=== PATIENT | female | born 1975 | race Caucasian/White ===

== ENCOUNTER 2018-06-03 14:42 | Emergency (ER) | payer SELFPAY ==
[2018-06-03] MEDS ORDERED: MORPHINE 4 MG/ML SYR ONE (15:53)
[2018-06-03] MEDS ORDERED: ONDANSETRON 4 MG/2 ML VIAL ONE (15:54)
[2018-06-03 16:06] LABS: Urine Blood 2+ (NEG); Urine Glucose NEGATIVE (NEG); Urine Protein 1+ (NEG); Urine Specific Gravity >1.030 (1.005-1.030); Urine pH 5.5 (5.0-7.0)
[2018-06-03 16:11] LABS: Absolute Lymphocytes (CBC) 1.8 K/uL (0.7-4.9); Absolute Monocytes 0.6 K/uL (0.1-1.3); Basophils % 0.4 % (0-1.3); Hematocrit 40.6 % (36.0-45.0); Lymphocytes % 16.8 % (15.3-44.8); Monocytes % 5.9 % (3.3-12.3); RBC Red Blood Cell Count 4.08 M/uL (3.86-4.86)
[2018-06-03 16:37] LABS: Albumin 3.7 g/dL (3.4-5.0); Bilirubin Direct 0.2 mg/dL (0-0.2); Bilirubin Total 0.7 mg/dL (0.2-1.0); Potassium 3.8 mmol/L (3.5-5.1); Protein, Total 7.2 g/dL (6.4-8.2)
--- NOTE | 2018-06-03 17:23 | RAD REPORT ---
EXAM DESCRIPTION: CT - Abdomen Pelvis W Contrast - 06/03/2018 5:08 pm CLINICAL HISTORY: Abdominal pain, diarrhea COMPARISON: CT imaging May 2013 TECHNIQUE: Biphasic, helical CT imaging of the abdomen and pelvis was performed following 100 ml non -ionic IV contrast. No oral contrast administered. All CT scans are performed using dose optimization technique as appropriate and may include automated exposure control or mA/KV adjustment according to patient size. FINDINGS: Small subpleural nodule posterior right lower lung field unchanged from 2014. No cardiomeg michael or pericardial effusion. Liver shows a fatty infiltration pattern. No suspicious liver lesions seen. There are several small r ound low-density masses in the left lobe of the liver up to 10 mm in size. These are most likely cyst s. Aggressive process is unlikely. Prior study comparison is limited as it was a noncontrast study. Pancreas and spleen show no suspicious findings. Gallbladder and biliary tree are also without suspic ious finding. Symmetric renal function is seen with no hydronephrosis or suspicious renal mass. No pyelonephritis o r acute parenchymal process. Urinary bladder is mostly contracted limiting assessment. No suspicious uterine or ovarian finding. No adrenal abnormalities. No gastric dilatation or wall thickening. Small bowel loops are not dilated. There are several disten ded, fluid-filled small bowel loops without a transition point or mass. This is likely a nonspecific enteritis. Appendix is normal. From cecum through splenic flexure no acute colon process seen. Patien t has prominent for age diverticulosis of the descending colon and sigmoid colon. There is a trace am ount of stranding adjacent to a few diverticula at the descending sigmoid junction. Mid rectum has a slightly nodular or irregular contour likely an artifact of incomplete distention. No free air, free fluid or inflammatory stranding. No mass or bulky lymphadenopathy. A very small umbilical hernia is present. No suspicious bony findings. IMPRESSION: Suspected very mild or early diverticulitis. There is a trace amount of stranding surrou nding a few diverticula at the descending sigmoid colon junction. Rectum has a slightly thickened or nodular contour that is probably artifact of incomplete distention . Patient may benefit from colonoscopy after medical management. Patient does have advanced for age d iverticulosis. Multiple prominent fluid-filled small bowel loops most likely a nonspecific enteritis. Fatty infiltration of the liver.
--- NOTE | 2018-06-03 17:48 | ER ---
Nurse's Notes [facility] Name: Jing Gan Age: 43 yrs Sex: Female : 1975 Arrival Date: 06/03/2018 Time: 14:45 Bed 26 Private MD: None, None Diagnosis: Diverticulitis of large intestine without perforation or abscess without bleeding;Diverticulosis of intestine, part unspecified, without perforation or abscess without bleeding Presentation: 06/03 15:00 Presenting complaint: Patient states: lower abd pain and diarrhea started last night. aa5 Pt denies nausea, denies vomiting. 15:00 Transition of care: patient was not received from another setting of care. Onset of aa5 symptoms was May 2018. Risk Assessment: Do you want to hurt yourself or someone else? Patient reports no desire to harm self or others. Initial Sepsis Screen: Does the patient meet any 2 criteria? No. Patient's initial sepsis screen is negative. Does the patient have a suspected source of infection? No. Patient's initial sepsis screen is negative. Care prior to arrival: None. 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 - Social history:: Smoking status: Patient uses tobacco products, 1/4 pack a day . - Ebola Screening: : No symptoms or risks identified at this time. Screenin:03 Abuse screen: Denies threats or abuse. Denies injuries from another. Nutritional mg2 screening: No deficits noted. Tuberculosis screening: No symptoms or risk factors identified. Fall Risk Assessment: 15:15 General: Appears distressed, uncomfortable, well groomed, well developed, well tl3 nourished, Behavior is calm, cooperative, appropriate for age. Pain: Complains of pain in right lower quadrant and left upper quadrant and right upper quadrant and suprapubic area and umbilical area and epigastric area. GI: Bowel sounds present X 4 quads. Abdomen is tender to palpation X 4 quads. Vital Signs: 15:00 BP 153 / 115; Pulse 66; Resp 16 S; Temp 98.0(O); Pulse Ox 100% on R/A; Weight 58.97 kg aa5 (R); Height 5 ft. 3 in. (160.02 cm) (R); Pain 6/10; 17:45 BP 145 / 78; Pulse 69; Resp 18; Pulse Ox 100% on R/A; Pain 0/10; mg2 15:00 Body Mass Index 23.03 (58.97 kg, 160.02 cm) aa5 ED Course: 14:45 Patient arrived in ED. mr 14:45 None, None is Private Physician. mr 15:00 Arm band placed on. aa5 15:06 Nagi Rockwell PA is PHCP. jr8 15:06 Francisco Javier Machado MD is Attending Physician. jr8 15:07 Irma Gracia, DANIAL is Primary Nurse. tl3 15:10 Triage completed. aa5 15:30 Placed in gown. mg2 15:30 Inserted saline lock: 20 gauge in right antecubital area, using aseptic technique. mg2 Blood collected. IV discontinued, intact, bleeding controlled, No redness/swelling at site. Pressure dressing applied. 17:[address] via wheelchair. vm2 17:06 CT completed. Patient tolerated procedure well. Patient moved back from CT. vm2 17:09 CT Abd/Pelvis - W/Contrast In Process Unspecified. EDMS 17:47 Gael Nur MD is Referral Physician. jr8 18:02 No provider procedures requiring assistance completed. mg2 Administered Medications: 16:00 Drug: Zofran 4 mg Route: IVP; Site: right antecubital; mg2 18:02 Follow up: Response: No adverse reaction; Marked relief of symptoms mg2 16:00 Drug: morphine 4 mg Route: IVP; Site: right antecubital; mg2 18:02 Follow up: Response: No adverse reaction; Marked relief of symptoms mg2 18:01 Drug: Cipro 500 mg Route: PO; mg2 18:02 Follow up: Response: No adverse reaction; Medication administered at discharge. mg2 18:01 Drug: Flagyl 500 mg Route: PO; mg2 18:01 Follow up: Response: No adverse reaction; Medication administered at discharge. mg2 Outcome: 17:48 Discharge ordered by . jr8 18:03 Discharged to home ambulatory, with family. mg2 18:03 Condition: stable 18:03 Discharge instructions given to patient, family, Instructed on discharge instructions, follow up and referral plans. medication usage, Demonstrated understanding of instructions, follow-up care, medications, Prescriptions given X 3. 18:07 Patient left the ED. tl3 Signatures: Dispatcher [employer] ROSITA Hue ReidAmanda, RN RN aa5 Nagi Rockwell PA PA jr8 Annia Kidd 2 Irma Gracia RN RN tl3 Eusebio Stearns RN RN mg2 Corrections: (The following items were deleted from the chart) 16:22 16:06 In radiology for Abdomen Pelvis W Con+CT.RAD.BRZ. [facility]
--- NOTE | 2018-06-03 17:48 | EDPHYS ---
Physician Documentation [facility] Name: Jing Gan Age: 43 yrs Sex: Female : 1975 Arrival Date: 06/03/2018 Time: 14:45 Bed 26 Private MD: None, None ED Physician Francisco Javier Machado HPI: 06/03 16:37 This 43 yrs old Female presents to ER via Ambulatory with complaints of jr8 Abdominal Pain. 16:37 The patient presents with abdominal pain in the lower abdomen. Onset: The jr8 symptoms/episode began/occurred acutely, yesterday. The symptoms do not radiate. Associated signs and symptoms: Pertinent positives: diarrhea. The symptoms are described as crampy. Modifying factors: The symptoms are alleviated by nothing, the symptoms are aggravated by food. Severity of pain: At its worst the pain was moderate in the emergency department the pain is unchanged. It is unknown whether or not the patient has had similar symptoms in the past. The patient has not recently seen a physician. Patient stated that for the past year has had multiple episodes of diarrhea and lower abdominal cramping. Stated that after she relieves her bowels feels much better. Has not followed up with anyone due to insurance reasons. Yesterday and today has had worsening of symptoms without relief with bowel movements . 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 - Social history:: Smoking status: Patient uses tobacco products, 1/4 pack a day . - Ebola Screening: : No symptoms or risks identified at this time. ROS: 16:37 Constitutional: Negative for fever, chills, and weight loss. jr8 16:37 Abdomen/GI: Positive for abdominal pain, diarrhea, abdominal cramps, abdominal distension, Negative for nausea, vomiting, anorexia, dysphagia, hematemesis, black/tarry stool, rectal pain, rectal bleeding, bowel incontinence, flatulence. 16:37 All other systems are negative. Exam: 16:37 Eyes: Pupils equal round and reactive to light, extra-ocular motions intact. Lids and jr8 lashes normal. Conjunctiva and sclera are non-icteric and not injected. Cornea within normal limits. Periorbital areas with no swelling, redness, or edema. ENT: Nares patent. No nasal discharge, no septal abnormalities noted. Tympanic membranes are normal and external auditory canals are clear. Oropharynx with no redness, swelling, or masses, exudates, or evidence of obstruction, uvula midline. Mucous membranes moist. Neck: Trachea midline, no thyromegaly or masses palpated, and no cervical lymphadenopathy. Supple, full range of motion without nuchal rigidity, or vertebral point tenderness. No Meningismus. Cardiovascular: Regular rate and rhythm with a normal S1 and S2. No gallops, murmurs, or rubs. Normal PMI, no JVD. No pulse deficits. Respiratory: Lungs have equal breath sounds bilaterally, clear to auscultation and percussion. No rales, rhonchi or wheezes noted. No increased work of breathing, no retractions or nasal flaring. Back: No spinal tenderness. No costovertebral tenderness. Full range of motion. Skin: Warm, dry with normal turgor. Normal color with no rashes, no lesions, and no evidence of cellulitis. MS/ Extremity: Pulses equal, no cyanosis. Neurovascular intact. Full, normal range of motion. Neuro: Awake and alert, GCS 15, oriented to person, place, time, and situation. Cranial nerves II-XII grossly intact. Motor strength 5/5 in all extremities. Sensory grossly intact. Cerebellar exam normal. Normal gait. 16:37 Abdomen/GI: Inspection: distension, that is mild, Bowel sounds: active, all quadrants, Palpation: soft, in all quadrants, nontender, in the epigastric area, umbilical area, suprapubic area, right upper quadrant, left upper quadrant and right lower quadrant, moderate abdominal tenderness, in the anterior aspect of left lateral abdomen and left lower quadrant, mass, is not appreciated, rebound tenderness, is not appreciated, voluntary guarding, is not appreciated, involuntary guarding, is not appreciated, no appreciated organomegaly, Indicators: McBurney's point is not tender, Roy's sign is negative, Rovsing's sign is negative, Liver: tenderness, is not appreciated. Vital Signs: 15:00 BP 153 / 115; Pulse 66; Resp 16 S; Temp 98.0(O); Pulse Ox 100% on R/A; Weight 58.97 kg aa5 (R); Height 5 ft. 3 in. (160.02 cm) (R); Pain 6/10; 17:45 BP 145 / 78; Pulse 69; Resp 18; Pulse Ox 100% on R/A; Pain 0/10; mg2 15:00 Body Mass Index 23.03 (58.97 kg, 160.02 cm) aa5 MDM: 15:06 Patient medically screened. jr8 17:45 Data reviewed: vital signs, nurses notes, lab test result(s), radiologic studies, CT jr8 scan, and as a result, I will discharge patient. Data interpreted: Pulse oximetry: on room air is 100 %. Interpretation: normal. Counseling: I had a detailed discussion with the patient and/or guardian regarding: the historical points, exam findings, and any diagnostic results supporting the discharge/admit diagnosis, lab results, radiology results, the need for outpatient follow up, a automobile and property underwriter, to return to the emergency department if symptoms worsen or persist or if there are any questions or concerns that arise at home. Response to treatment: the patient's symptoms have markedly improved after treatment. ED course: Discussed with patient that she has diverticulosis that is advanced for her age. Mild diverticulitis present. Will put on antibiotics and pain medicine. S/S given to patient to watch for. If any present to come back immediately for further evaluation. Patient good with this plan and when infection is cleared will f/u with automobile and property underwriter . 06/03 15:34 Order name: Urine Dipstick--Ancillary (enter results); Complete Time: 16:10 06/03 15:34 Order name: Urine --Ancillary (enter results); Complete Time: 16:10 06/03 15:37 Order name: Basic Metabolic Panel; Complete Time: 16:42 06/03 15:37 Order name: CBC with Diff; Complete Time: 16:23 06/03 15:37 Order name: Creatinine for Radiology; Complete Time: 16:42 06/03 15:37 Order name: Hepatic Function; Complete Time: 16:42 06/03 15:37 Order name: Lipase; Complete Time: 16:42 06/03 15:37 Order name: IV Saline Lock; Complete Time: 17:33 06/03 16:23 Order name: CT Abd/Pelvis - W/Contrast; Complete Time: 17:38 8 06/03 15:37 Order name: Labs collected and sent; Complete Time: 17:33 06/03 15:37 Order name: Urine Test (obtain specimen); Complete Time: 15:38 06/03 15:37 Order name: Urine Dipstick-Ancillary (obtain specimen); Complete Time: 15:38 Administered Medications: 16:00 Drug: Zofran 4 mg Route: IVP; Site: right antecubital; mg2 18:02 Follow up: Response: No adverse reaction; Marked relief of symptoms mg2 16:00 Drug: morphine 4 mg Route: IVP; Site: right antecubital; mg2 18:02 Follow up: Response: No adverse reaction; Marked relief of symptoms mg2 18:01 Drug: Cipro 500 mg Route: PO; mg2 18:02 Follow up: Response: No adverse reaction; Medication administered at discharge. mg2 18:01 Drug: Flagyl 500 mg Route: PO; mg2 18:01 Follow up: Response: No adverse reaction; Medication administered at discharge. mg2 Disposition: 06/03/18 17:48 Discharged to Home. Impression: Diverticulitis of large intestine without perforation or abscess without bleeding, Diverticulosis of intestine, part unspecified, without perforation or abscess without bleeding. - Condition is Stable. - Discharge Instructions: Diverticulitis, Diverticulosis. - Prescriptions for Cipro 500 mg Oral Tablet - take 1 tablet by ORAL route every 12 hours for 10 days; 20 tablet. Flagyl 500 mg Oral Tablet - take 1 tablet by ORAL route every 6 hours for 10 days; 40 tablet. Tylenol- Codeine #3 300-30 mg Oral Tablet - take 2 tablets by ORAL route every 6 hours As needed; 20 tablet. Zofran 4 mg Oral Tablet - take 1 tablet by ORAL route every 12 hours As needed; 20 tablet. - Medication Reconciliation Form, Thank You Letter, Antibiotic Education, Prescription Opioid Use form. - Follow up: Gael Nur MD; When: 1 week; Reason: Recheck today's complaints, Continuance of care, Re-evaluation by your physician. - Problem is new. - Symptoms have improved. Signatures: Dispatcher [employer] EDMS Amanda Oneill, RN RN aa5 Nagi Rockwell PA PA jr8 Irma Gracia, RN RN tl3 Eusebio Stearns, RN RN mg2 Corrections: (The following items were deleted from the chart) 16:22 15:37 Abdomen Pelvis W Con+CT.RAD.BRZ ordered. EDMS EDMS 18:07 17:48 06/03/2018 17:48 Discharged to Home. Impression: Diverticulitis of large tl3 intestine without perforation or abscess without bleeding; Diverticulosis of intestine, part unspecified, without perforation or abscess without bleeding. Condition is Stable. Forms are Medication Reconciliation Form, Thank You Letter, Antibiotic Education, Prescription Opioid Use. Follow up: Gael Nur; When: 1 week; Reason: Recheck today's complaints, Continuance of care, Re-evaluation by your physician. Problem is new. Symptoms have improved. jr8
[2018-06-03] MEDS ORDERED: CIPROFLOXACIN HCL 500 MG TAB ONE (18:05)
[2018-06-03] MEDS ORDERED: metroNIDAZOLE 500 MG TABLET ONE (18:05)
== END 2018-06-03 18:07 | disposition home or self-care (01) ==
LOC: ER 14:42
DX: K57.32 Diverticulitis of large intestine without perforation or abscess without bleeding (principal); K57.30 Diverticulosis of large intestine without perforation or abscess without bleeding; Z72.0 Tobacco use
CPT/HCPCS: 36415; 74177; 80048; 80076; 81003; 81025; 83690; 85025; 96374; 96375; 99284; J2405; Q9967

== ENCOUNTER 2018-09-18 07:52 | Inpatient (IN) | payer SELFPAY ==
--- OUTSIDE RECORDS SUMMARY | 2018-09-18 07:55 | XMS REPORT ---
:1975 Author Organization [facility] Address [address] [place] [address] [place] [id number] Care Team Providers Name Role Phone Unavailable Unavailable Unavailable Problems This patient has no known problems. Allergies, Adverse Reactions, Alerts This patient has no known allergies or adverse reactions. Medications This patient has no known medications.
[2018-09-18 08:32] LABS: Absolute Lymphocytes (CBC) 1.4 K/uL (0.7-4.9); Absolute Neutrophil 9.7 K/uL (1.8-8.0); Basophils % 0.6 % (0-1.3); Eosinophils % 0.9 % (0-4.4); Hematocrit 40.7 % (36.0-45.0); Lymphocytes % 11.7 % (15.3-44.8); MPV 8.1 fL (7.6-11.3); Monocytes % 8.3 % (3.3-12.3); RBC Red Blood Cell Count 4.01 M/uL (3.86-4.86)
[2018-09-18] MEDS ORDERED: ONDANSETRON 4 MG/2 ML VIAL ONE ×2 (08:44→09:55)
[2018-09-18] MEDS ORDERED: MORPHINE 4 MG/ML SYR ONE ×2 (08:44→09:06)
[2018-09-18] MEDS ORDERED: NA CHLORIDE 0.9% 1,000 ML ONE ×2 (08:44→09:20)
[2018-09-18] MEDS ORDERED: CIPROFLOXACIN 400mg IV 400 MG/200 ML BAG IV ONE (08:44)
[2018-09-18] MEDS ORDERED: METRONIDAZOLE 500mg IVPB 500 MG/100 ML BAG IV ONE (08:44)
[2018-09-18 08:57] LABS: Albumin 3.2 g/dL (3.4-5.0); Bilirubin Direct 0.3 mg/dL (0-0.2); Bilirubin Total 0.8 mg/dL (0.2-1.0); Potassium 3.7 mmol/L (3.5-5.1); Protein, Total 7.1 g/dL (6.4-8.2)
[2018-09-18] MEDS ORDERED: CEFTRIAXONE/SWI 1gm 1 GM/10 ML SYR ONE (09:06)
--- NOTE | 2018-09-18 10:12 | RAD REPORT ---
EXAM DESCRIPTION: CT - Abdomen Pelvis W Contrast - 09/18/2018 9:56 am CLINICAL HISTORY: Abdominal pain, back pain, flu-like symptoms, history of diverticulitis COMPARISON: CT imaging May 2018 and May 2013 TECHNIQUE: Biphasic, helical CT imaging of the abdomen and pelvis was performed following 100 ml non -ionic IV contrast. Oral contrast was given. All CT scans are performed using dose optimization technique as appropriate and may include automated exposure control or mA/KV adjustment according to patient size. FINDINGS: A 5 millimeter pleural abutting nodule is present posterior right lung base stable back to 2013. No acute lung base finding. No pericardial thickening or effusion. No cardiomegaly. Liver attenuation indicates a mild diffuse fatty infiltration. Several small cysts are present in the left lobe. No suspicious liver lesion or capsular nodularity. Portal vein is unremarkable. No spleno megaly or focal splenic finding. Pancreas and peripancreatic tissues unremarkable. Gallbladder and bi liary tree are also without suspicious finding. Symmetric renal function is seen with no hydronephrosis or suspicious renal mass. No adrenal abnormal ities.No pyelonephritis or acute parenchymal process. Partially filled urinary bladder shows no suspi cious findings. Retroflexed uterus shows no suspicious finding. A 2.5 centimeter left ovarian cyst is present. No suspicious characteristics. This is believed to be a functional cyst. No gastric dilatation or gastric wall thickening. No acute small bowel finding. Appendix is normal. F rom the cecum through the proximal descending portion the colon is unremarkable. Patient has prominen t for age diverticulosis in the sigmoid and descending colon. In the mid descending colon there is a short segment circumferential wall thickening with edematous/ inflammatory stranding in the adjacent fat. Proximal sigmoid shows relatively prominent colon wall with trace amount of stranding in the fat . A few small lymph nodes are present. No abscess identified. No extraluminal free air. No pneumatosis. No hernia, mass or bulky lymphadeno nichol. No suspicious bony findings. IMPRESSION: Acute diverticulitis findings involve a short segment of the mid descending colon. No ab scess, extraluminal free air or other surgically emergent component. Prominent diverticulosis and mild wall thickening in the proximal sigmoid colon with adjacent small l ymph nodes. This may be additional site of mild diverticulitis. Malignancy is not excluded but on latanya gao. Additional nonacute findings detailed in the body of the report.
[2018-09-18 10:36] LABS: Urine Blood NEGATIVE (NEG); Urine Glucose NEGATIVE (NEG); Urine Protein 3+ (NEG); Urine Specific Gravity 1.025 (1.005-1.030); Urine pH 8.5 (5.0-7.0)
--- NOTE | 2018-09-18 10:41 | ER ---
Nurse's Notes [facility] Name: Jing Gan Age: 43 yrs Sex: Female : 1975 Arrival Date: 09/18/2018 Time: 07:57 Bed 14 Private MD: Diagnosis: Abdominal tenderness;Diverticulitis of large intestine without perforation or abscess without bleeding;Elevated white blood cell count Presentation: 09/18 08:00 Presenting complaint: Patient states: i have diverticulitis and Dr. Vegas has me on tw2 antibiotics but i stopped taking them like 4 days ago, then last night about 10pm the pain got worse and so i started taking them but it hasnt got better, also about 2 weeks ago i had flu like symptoms and the clinic in [place] said i had bronchitis and i still feel that way too and my lower back hurts. Transition of care: patient was not received from another setting of care. Onset of symptoms was September 18, 2018. Risk Assessment: Do you want to hurt yourself or someone else? Patient reports no desire to harm self or others. Initial Sepsis Screen: Does the patient meet any 2 criteria? No. Patient's initial sepsis screen is negative. Does the patient have a suspected source of infection? No. Patient's initial sepsis screen is negative. Care prior to arrival: None. 08:00 Method Of Arrival: Wheelchair tw2 08:00 Acuity: ELMER 3 tw2 Triage Assessment: 08:01 General: Appears uncomfortable, slender, Behavior is crying. Pain: Complains of pain in tw2 abdomen. GI: Reports lower abdominal pain, upper abdominal pain, nausea. 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 - Social history:: Smoking status: . - Ebola Screening: : Patient denies travel to an Ebola-affected area in the 21 days before illness onset. - Family history:: not pertinent. Screenin:04 Abuse screen: Denies threats or abuse. Nutritional screening: No deficits noted. tw2 Tuberculosis screening: No symptoms or risk factors identified. Fall Risk None identified. Assessment: 08:00 General: Appears uncomfortable, slender, Behavior is crying. Pain: Complains of pain in tw2 abdomen and pelvis. Neuro: Level of Consciousness is awake, alert, obeys commands, Oriented to person, place, time, situation. Cardiovascular: Heart tones S1 S2 Patient's skin is warm and dry. Respiratory: Airway is patent Respiratory effort is even, unlabored, Respiratory pattern is regular, symmetrical, Breath sounds are clear bilaterally. GI: Abdomen is flat, Bowel sounds present X 4 quads. Abd is soft X 4 quads Reports lower abdominal pain, upper abdominal pain, cramping, pt states "it feels like labor pain like my insides are going to fall out and maybe a kidney infection.". : No signs and/or symptoms were reported regarding the genitourinary system. EENT: No signs and/or symptoms were reported regarding the EENT system. Derm: No signs and/or symptoms reported regarding the dermatologic system. Musculoskeletal: Range of motion: intact in all extremities. 08:11 Reassessment: Dr. Machado at bedside at this time. tw2 09:01 Reassessment: No changes from previously documented assessment. Patient and/or family tw2 updated on plan of care and expected duration. Pain level reassessed. Patient is alert, oriented x 3, equal unlabored respirations, skin warm/dry/pink. pt states "i do drink, i am ashamed but i stopped taking my antibiotics so i could drink, i drink 4-5 shots of that cinnamon whiskey a day but then it started hurting so i stopped drinking to take the antibiotics again". 09:37 Reassessment: pt vomiting at this time, provider notified, medicated as ordered. tw2 10:05 Reassessment: Patient and/or family updated on plan of care and expected duration. Pain tw2 level reassessed. Patient is alert, oriented x 3, equal unlabored respirations, skin warm/dry/pink. pt reports nauseousness "its not bad but its still there". 11:21 Reassessment: Patient and/or family updated on plan of care and expected duration. Pain tw2 level reassessed. Patient is alert, oriented x 3, equal unlabored respirations, skin warm/dry/pink. pt c/o pain Patient states symptoms have not improved. Vital Signs: 08:02 BP 125 / 86; Pulse 103; Resp 19; Temp 98.3(TE); Pulse Ox 100% on R/A; Weight 56.25 kg tw2 (R); Height 5 ft. 3 in. (160.02 cm); Pain 10/10; 08:59 BP 132 / 95; Pulse 73; Resp 17; Pulse Ox 100% on R/A; tw2 10:05 BP 121 / 91; Pulse 81; Resp 17; Pulse Ox 99% on R/A; tw2 11:21 BP 124 / 92; Pulse 65; Resp 17; Pulse Ox 100% on R/A; Pain 9/10; tw2 12:13 BP 114 / 85; Pulse 77; Resp 17; Pulse Ox 99% on R/A; tw2 08:02 Body Mass Index 21.97 (56.25 kg, 160.02 cm) tw2 ED Course: 07:57 Patient arrived in ED. mr 08:00 Cheyenne Burks, DANIAL is Primary Nurse. tw2 08:00 Bed in low position. Call light in reach. Adult w/ patient. Pulse ox on. NIBP on. tw2 08:01 Triage completed. tw2 08:01 Arm band placed on. tw2 08:03 Francisco Javier Machado MD is Attending Physician. keyla 08:24 Inserted saline lock: 20 gauge in left antecubital area, using aseptic technique. Blood tw2 collected. 09:57 CT Abd/Pelvis - PO and IV Contrast In Process Unspecified. EDMS 10:40 Antonio Smith DO is Hospitalizing Provider. keyla 11:59 Awaiting: unsuccessful attempt to call report at this time. tw2 12:12 No provider procedures requiring assistance completed. Patient admitted, IV remains in tw2 place. Administered Medications: 08:32 Drug: NS 0.9% 1000 ml Route: IV; Rate: 1 bolus; Site: left antecubital; tw2 09:45 Follow up: Response: No adverse reaction; IV Status: Completed infusion; IV Intake: tw2 1000ml 08:34 Drug: Zofran 4 mg Route: IVP; Site: left antecubital; tw2 08:47 Follow up: Response: No adverse reaction tw2 08:36 Drug: morphine 4 mg Route: IVP; Site: left antecubital; tw2 08:46 Follow up: Response: Pain is unchanged, physician notified tw2 08:37 Drug: Flagyl 500 mg Volume: 100 ml; Route: IVPB; Rate: 200 ml/hr; Infused Over: 30 tw2 mins; Site: left antecubital; 09:08 Follow up: Response: No adverse reaction; IV Status: Completed infusion tw2 08:51 Drug: Rocephin 1 grams {Note: flagy paused and flushed with 10 ml NS prior to and after tw2 administration.} Route: IV; Rate: per protocol; Site: left antecubital; 08:56 Follow up: Response: No adverse reaction; IV Status: Completed infusion tw2 08:57 Drug: morphine 4 mg Route: IVP; Site: left antecubital; tw2 10:31 Follow up: Response: No adverse reaction; Pain is decreased tw2 08:57 CANCELLED (Duplicate Order): morphine 4 mg IVP once tw2 09:08 Drug: Cipro 400 mg Volume: 200 ml; Route: IVPB; Infused Over: 60 mins; Site: left tw2 antecubital; 10:15 Follow up: Response: No adverse reaction; IV Status: Completed infusion tw2 09:15 Drug: NS 0.9% 1000 ml Route: IV; Rate: 125 ml/hr; Site: left antecubital; tw2 11:59 Follow up: IV Status: Infusion continued upon admission tw2 12:13 Follow up: IV Status: Infusion continued upon admission tw2 09:42 Drug: Zofran 4 mg Route: IVP; Site: left antecubital; tw2 10:20 Follow up: Response: No adverse reaction; Nausea is decreased tw2 Intake: 09:45 IV: 1000ml; Total: 1000ml. tw2 Outcome: 10:41 Decision to Hospitalize by Provider. keyla 12:12 Admitted to Med/surg accompanied by tech, via wheelchair, room 424, with chart, Report tw2 called to DANIAL Christensen 12:12 Condition: stable 12:12 Instructed on the need for admit. 12:34 Patient left the ED. tw2 Signatures: Dispatcher [employer] Francisco Javier Soler MD MD [facility] Cheyenne Wells RN RN tw2
--- NOTE | 2018-09-18 10:42 | EDPHYS ---
Physician Documentation [facility] Name: Jing Gan Age: 43 yrs Sex: Female : 1975 Arrival Date: 09/18/2018 Time: 07:57 Bed 14 Private MD: ED Physician Francisco Javier Machado HPI: 09/18 08:22 This 43 yrs old Female presents to ER via Wheelchair with complaints of keyla Abdominal Pain. 08:22 The patient presents with abdominal pain in the lower abdomen, in the left upper keyla quadrant, in the left lower quadrant, abdominal distention in the upper abdomen, in the lower abdomen. Onset: The symptoms/episode began/occurred 2 day(s) ago. The symptoms do not radiate. Associated signs and symptoms: none. Severity of pain: At its worst the pain was mild in the emergency department the pain is unchanged. The patient has not experienced similar symptoms in the past. 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 - Social history:: Smoking status: . - Ebola Screening: : Patient denies travel to an Ebola-affected area in the 21 days before illness onset. - Family history:: not pertinent. ROS: 08:22 Constitutional: Negative for fever, chills, and weight loss, Eyes: Negative for injury, keyla pain, redness, and discharge, ENT: Negative for injury, pain, and discharge, Neck: Negative for injury, pain, and swelling, Cardiovascular: Negative for chest pain, palpitations, and edema, Respiratory: Negative for shortness of breath, cough, wheezing, and pleuritic chest pain, Back: Negative for injury and pain, : Negative for injury, bleeding, discharge, and swelling, MS/Extremity: Negative for injury and deformity, Skin: Negative for injury, rash, and discoloration, Neuro: Negative for headache, weakness, numbness, tingling, and seizure. 08:22 Abdomen/GI: Positive for abdominal pain, of the right lower quadrant and left lower quadrant. Exam: 08:22 Constitutional: This is a well developed, well nourished patient who is awake, alert, keyla and in no acute distress. Head/Face: Normocephalic, atraumatic. Eyes: Pupils equal round and reactive to light, extra-ocular motions intact. Lids and lashes normal. Conjunctiva and sclera are non-icteric and not injected. Cornea within normal limits. Periorbital areas with no swelling, redness, or edema. ENT: Nares patent. No nasal discharge, no septal abnormalities noted. Tympanic membranes are normal and external auditory canals are clear. Oropharynx with no redness, swelling, or masses, exudates, or evidence of obstruction, uvula midline. Mucous membranes moist. Neck: Trachea midline, no thyromegaly or masses palpated, and no cervical lymphadenopathy. Supple, full range of motion without nuchal rigidity, or vertebral point tenderness. No Meningismus. Chest/axilla: Normal chest wall appearance and motion. Nontender with no deformity. No lesions are appreciated. Cardiovascular: Regular rate and rhythm with a normal S1 and S2. No gallops, murmurs, or rubs. Normal PMI, no JVD. No pulse deficits. Respiratory: Lungs have equal breath sounds bilaterally, clear to auscultation and percussion. No rales, rhonchi or wheezes noted. No increased work of breathing, no retractions or nasal flaring. Back: No spinal tenderness. No costovertebral tenderness. Full range of motion. Skin: Warm, dry with normal turgor. Normal color with no rashes, no lesions, and no evidence of cellulitis. MS/ Extremity: Pulses equal, no cyanosis. Neurovascular intact. Full, normal range of motion. Neuro: Awake and alert, GCS 15, oriented to person, place, time, and situation. Cranial nerves II-XII grossly intact. Motor strength 5/5 in all extremities. Sensory grossly intact. Cerebellar exam normal. Normal gait. Psych: Awake, alert, with orientation to person, place and time. Behavior, mood, and affect are within normal limits. 08:22 Abdomen/GI: Inspection: distension, Bowel sounds: normal, Palpation: moderate abdominal tenderness, in the suprapubic area, posterior aspect of left lateral abdomen, anterior aspect of left lateral abdomen and left lower quadrant, Liver: no appreciated palpable abnormalities, Hernia: not appreciated. Vital Signs: 08:02 BP 125 / 86; Pulse 103; Resp 19; Temp 98.3(TE); Pulse Ox 100% on R/A; Weight 56.25 kg tw2 (R); Height 5 ft. 3 in. (160.02 cm); Pain 10/10; 08:59 BP 132 / 95; Pulse 73; Resp 17; Pulse Ox 100% on R/A; tw2 10:05 BP 121 / 91; Pulse 81; Resp 17; Pulse Ox 99% on R/A; tw2 11:21 BP 124 / 92; Pulse 65; Resp 17; Pulse Ox 100% on R/A; Pain 9/10; tw2 12:13 BP 114 / 85; Pulse 77; Resp 17; Pulse Ox 99% on R/A; tw2 08:02 Body Mass Index 21.97 (56.25 kg, 160.02 cm) tw2 MDM: 08:03 Patient medically screened. [facility] 08:24 Data reviewed: vital signs, nurses notes, lab test result(s), radiologic studies, CT keyla scan, plain films. 09/18 08:19 Order name: Basic Metabolic Panel; Complete Time: 09:33 [facility] 09/18 08:19 Order name: CBC with Diff; Complete Time: 09:33 [facility] 09/18 08:19 Order name: Creatinine for Radiology; Complete Time: 09:33 [facility] 09/18 08:19 Order name: Hepatic Function; Complete Time: 09:33 [facility] 09/18 08:19 Order name: Lipase; Complete Time: 09:33 [facility] 09/18 08:19 Order name: Urine Culture [facility] 09/18 08:19 Order name: CT Abd/Pelvis - PO and IV Contrast; Complete Time: 10:39 [facility] 09/18 08:45 Order name: Urine Dipstick--Ancillary (enter results); Complete Time: 10:39 mo 09/18 08:45 Order name: Urine --Ancillary (enter results); Complete Time: 10:39 mo 09/18 08:19 Order name: IV Saline Lock; Complete Time: 08:26 [facility] 09/18 08:19 Order name: Labs collected and sent; Complete Time: 08:26 [facility] 09/18 08:19 Order name: Urine Dipstick-Ancillary (obtain specimen); Complete Time: 08:38 [facility] 09/18 08:19 Order name: Urine Test (obtain specimen); Complete Time: 08:38 [facility] Administered Medications: 08:32 Drug: NS 0.9% 1000 ml Route: IV; Rate: 1 bolus; Site: left antecubital; tw2 09:45 Follow up: Response: No adverse reaction; IV Status: Completed infusion; IV Intake: tw2 1000ml 08:34 Drug: Zofran 4 mg Route: IVP; Site: left antecubital; tw2 08:47 Follow up: Response: No adverse reaction tw2 08:36 Drug: morphine 4 mg Route: IVP; Site: left antecubital; tw2 08:46 Follow up: Response: Pain is unchanged, physician notified tw2 08:37 Drug: Flagyl 500 mg Volume: 100 ml; Route: IVPB; Rate: 200 ml/hr; Infused Over: 30 tw2 mins; Site: left antecubital; 09:08 Follow up: Response: No adverse reaction; IV Status: Completed infusion tw2 08:51 Drug: Rocephin 1 grams {Note: flagy paused and flushed with 10 ml NS prior to and after tw2 administration.} Route: IV; Rate: per protocol; Site: left antecubital; 08:56 Follow up: Response: No adverse reaction; IV Status: Completed infusion tw2 08:57 Drug: morphine 4 mg Route: IVP; Site: left antecubital; tw2 10:31 Follow up: Response: No adverse reaction; Pain is decreased tw2 08:57 CANCELLED (Duplicate Order): morphine 4 mg IVP once tw2 09:08 Drug: Cipro 400 mg Volume: 200 ml; Route: IVPB; Infused Over: 60 mins; Site: left tw2 antecubital; 10:15 Follow up: Response: No adverse reaction; IV Status: Completed infusion tw2 09:15 Drug: NS 0.9% 1000 ml Route: IV; Rate: 125 ml/hr; Site: left antecubital; tw2 11:59 Follow up: IV Status: Infusion continued upon admission tw2 12:13 Follow up: IV Status: Infusion continued upon admission tw2 09:42 Drug: Zofran 4 mg Route: IVP; Site: left antecubital; tw2 10:20 Follow up: Response: No adverse reaction; Nausea is decreased tw2 Disposition: 09/18/18 10:41 Hospitalization ordered by Antonio Smith for Inpatient Admission. Preliminary diagnosis are Abdominal tenderness, Diverticulitis of large intestine without perforation or abscess without bleeding, Elevated white blood cell count. - Bed requested for Telemetry/MedSurg (Inpatient). - Status is Inpatient Admission. tw2 - Condition is Fair. - Problem is new. - Symptoms have improved. UTI on Admission? No Signatures: Dispatcher [employer] EDMS Francisco Javier Machado MD MD cha Solis, Maria ms Cheyenne Burks RN RN tw2 Corrections: (The following items were deleted from the chart) 08:57 08:57 morphine 4 mg IVP once ordered. tw2 tw2 11:47 10:41 Hospitalization Ordered by Antonio Smith DO for Inpatient Admission. Preliminary ms diagnosis is Abdominal tenderness; Diverticulitis of large intestine without perforation or abscess without bleeding; Elevated white blood cell count. Bed requested for Telemetry/MedSurg (Inpatient). Status is Inpatient Admission. Condition is Fair. Problem is new. Symptoms have improved. UTI on Admission? No. [facility] 12:34 11:47 09/18/2018 10:41 Hospitalization Ordered by Antonio Smith DO for Inpatient tw2 Admission. Preliminary diagnosis is Abdominal tenderness; Diverticulitis of large intestine without perforation or abscess without bleeding; Elevated white blood cell count. Bed requested for Telemetry/MedSurg (Inpatient). Status is Inpatient Admission. Condition is Fair. Problem is new. Symptoms have improved. UTI on Admission? No. ms
--- NOTE | 2018-09-18 11:18 | P.HP ---
Certification for Inpatient Patient admitted to: Inpatient With expected LOS: >2 Midnights Patient will require the following post-hospital care: None Practitioner: I am a practitioner with admitting privileges, knowledge of patient current condition, hospital course, and medical plan of care. Services: Services provided to patient in accordance with Admission requirements found in Title 42 Section 412.3 of the Code of Federal Regulations Patient History Date of Service: 09/18/18 Primary Care Provider: none; [facility]-Dr. Hyde Reason for admission: Abdominal pain, nausea, vomiting History of Present Illness: 43 yo CF presented to the ER with lower quadrant abdominal pain, nausea and vomiting. Symptoms of abdominal pain started last night to the lower quadrant, mainly to the left side. It was associated with nausea and vomiting. She was not able to take good oral intake. She mentions that she sees GI as an outpatient and was treated for diverticulitis about 2 weeks ago. She was given 2 antibiotics and anti nausea medication. Pain worsened this am. She is not any better. She came to the ER for evaluation. In the ER she was given medication for pain and nausea. CT shows acute descending and sigmoid diverticulitis. No free air or abscess noted. WBC is 12.8. Lipase negative. She will be admitted for inpatient treatment for recurrent diverticulitis. When I saw the patient in the ER, she was still having some pain to the lower quadrant. Some nausea noted. She has not had a colonoscopy but was to get one with GI once her diverticulitis had resolved. Allergies No Known Allergies Allergy (Unverified 08/14/12 16:05) Home medications list reviewed: Yes - Past Medical/Surgical History Diabetic: No -: Diverticulitis -: Tobacco abuse -: Alcohol use -: Tubal ligation Psychosocial/ Personal History: Patient lives at home. - Family History Family History: Reviewed- Non-Contributory - Social History Smoking Status: Current every day smoker Counseled patient to stop smoking for: less than 10 minutes Smoking therapy provided: Yes Patient receptive to therapy: Yes Alcohol use: Yes CD- Drugs: No Caffeine use: Yes Place of Residence: Home Review of Systems General: Weakness, Malaise, As per HPI Eyes: Unremarkable ENT: Unremarkable Respiratory: Unremarkable Cardiovascular: Unremarkable Gastrointestinal: Nausea, Vomiting, Abdominal Pain, As per HPI Genitourinary: Unremarkable Musculoskeletal: Unremarkable Integumentary: Unremarkable Neurological: Unremarkable Lymphatics: Unremarkable Physical Examination - Physical Exam General: Alert, Oriented x3, Cooperative, Mild distress HEENT: Atraumatic, Normocephalic, PERRLA, Other (dry mucous membranes) Neck: Supple, No Thyromegaly Respiratory: Clear to auscultation bilaterally, Normal air movement Cardiovascular: Normal pulses, Regular rate/rhythm Gastrointestinal: Normal bowel sounds, Soft and benign, Non-distended, No masses , No rebound, No guarding, Tenderness (pain to the left lower quadrant noted. ) Musculoskeletal: No erythema, No tenderness, No warmth Integumentary: No tenderness/swelling, No erythema, No warmth, No cyanosis Neurological: Normal speech, Normal strength at 5/5 x4 extr, Normal tone, Normal affect - Studies Laboratory Data (last 24 hrs) 09/18/18 08:24: Creatinine 0.83 09/18/18 08:24: WBC 12.3 H, Hgb 13.8, Hct 40.7, Plt Count 345 09/18/18 08:24: Sodium 137, Potassium 3.7, BUN 5 L, Creatinine 0.85, Glucose 102 , Total Bilirubin 0.8, AST 27, ALT 61, Alkaline Phosphatase 121 H, Lipase 102 Assessment and Plan - Plan Impression: Left lower abdominal pain, nausea, vomiting secondary to recurrent acute sigmoid /descending diverticulitis Tobacco/alcohol abuse Plan: Patient will be admitted for treatment for her recurrent diverticulitis. No free air or abscess noted. Will start IV Flagyl/Cipro, IV fluids and medication for pain/nausea. Will keep the patient NPO until she improves. Will consult her GI specialist for recommendations. Will provide nicotine patch if needed. Will monitor lab and replace electrolytes as needed. Will provide Lovenox for DVT prophylaxis. Blood cultures obtained. Will continue to monitor closely and reassess. Discharge Plan: Home Plan to discharge in: Greater than 2 days - Advance Directives Does patient have a Living Will: No Does patient have a Durable POA for Healthcare: No - Code Status/Comfort Care Code Status Assessed: Yes (patient is full code) Time Spent Managing Pts Care (In Minutes): 55
[2018-09-18] MEDS ORDERED: MORPHINE 2 MG/ML SYR IV PRN (11:23)
[2018-09-18] MEDS ORDERED: MORPHINE 2 MG/ML SYR ONE (11:42)
[2018-09-18] MEDS ORDERED: HYDROCODONE/APAP 7.5/325 MG TAB PO PRN (13:25)
[2018-09-18] MEDS ORDERED: TRAMADOL HCL 50 MG TAB PO PRN (13:25)
[2018-09-18] MEDS ORDERED: ACETAMINOPHEN 500 MG TAB PO PRN (13:25)
[2018-09-18] MEDS ORDERED: ACETAMINOPHEN 650MG/RECT SUPP PR PRN (13:25)
[2018-09-18 14:19] VITALS: BMI 21.0
[2018-09-18] MEDS: D5 0.9 NS 1,000 ML IV SCH ×2 (14:54→20:14)
[2018-09-18] MEDS: ONDANSETRON 4 MG/2 ML VIAL IV PRN ×2 (15:02→21:03)
[2018-09-18] MEDS: FENTANYL CITR 100 MCG/2 ML IV PRN ×3 (15:20→22:58)
[2018-09-18] MEDS: METRONIDAZOLE 500mg IVPB 500 MG/100 ML BAG IV SCH (16:48)
[2018-09-18] MEDS ORDERED: KCL 20 MEQ/100 mL IVPB 20 MEQ/100 ML BAG IV SCH (17:00)
[2018-09-18 17:55] LABS: Urine Appearance CLEAR; Urine Bilirubin NEGATIVE (NEG); Urine Blood NEGATIVE (NEG); Urine Color DK YELLOW; Urine Glucose NEGATIVE (NEG); Urine Microscopic Reflex ORDER UMIC; Urine Protein NEGATIVE (NEG); Urine Specific Gravity >=1.030 (1.005-1.030); Urine pH 5.5 (5.0-7.0)
[2018-09-18 18:08] LABS: Urine Bacteria <20 /HPF (<20); Urine Culture Reflex Order NOT NEEDED; Urine RBC NONE SEEN /HPF (NONE SEEN)
[2018-09-18] MEDS: CIPROFLOXACIN 400mg IV 400 MG/200 ML BAG IV SCH (20:04)
[2018-09-18] MEDS: FAMOTIDINE 20 MG/2 ML VIAL IV SCH (20:07)
[2018-09-19] MEDS: METRONIDAZOLE 500mg IVPB 500 MG/100 ML BAG IV SCH ×3 (01:20→16:42)
[2018-09-19] MEDS: D5 0.9 NS 1,000 ML IV SCH ×2 (01:21→13:25)
[2018-09-19] MEDS: FENTANYL CITR 100 MCG/2 ML IV PRN ×6 (02:53→19:36)
[2018-09-19] MEDS: ONDANSETRON 4 MG/2 ML VIAL IV PRN ×3 (02:59→12:53)
[2018-09-19 06:06] LABS: Absolute Lymphocytes (CBC) 0.7 K/uL (0.7-4.9); Absolute Monocytes 0.5 K/uL (0.1-1.3); Absolute Neutrophil 13.8 K/uL (1.8-8.0); Basophils % 0.2 % (0-1.3); Eosinophils % 0.1 % (0-4.4); Hematocrit 35.4 % (36.0-45.0); Lymphocytes % 4.9 % (15.3-44.8); MPV 8.9 fL (7.6-11.3); Monocytes % 3.3 % (3.3-12.3); RBC Red Blood Cell Count 3.44 M/uL (3.86-4.86)
[2018-09-19 06:15] LABS: BUN Blood Urea Nitrogen 4 mg/dL (7-18); Bicarbonate 25 mmol/L (21-32); Glucose Level 138 mg/dL (74-106); Magnesium 1.5 mg/dL (1.8-2.4); Potassium 3.5 mmol/L (3.5-5.1); Sodium Level 139 mmol/L (136-145)
[2018-09-19 07:34] LABS: Blood Morphology Comment NOT SEEN (NOT SEEN); Platelet Estimate ADEQ; Urine White Blood Cell Casts OK
[2018-09-19] MEDS: ENOXAPARIN 40 MG/0.4 ML SQ SCH (09:00)
[2018-09-19] MEDS ORDERED: POTASSIUM CL SA 10 MEQ TAB PO ONE (09:00)
[2018-09-19] MEDS ORDERED: Magnesium Sulfate 2gm IVPB 2 G/50 ML BAG IV ONE (09:00)
[2018-09-19] MEDS: NICOTINE 21 MG/PAT TD SCH (09:00)
--- NOTE | 2018-09-19 09:15 | P.PN ---
Subjective Date of Service: 09/19/18 Primary Care Provider: none; GI-Dr. Hyde Chief Complaint: Abdominal pain, nausea, vomiting Subjective: Other (Patient still with pain to the left lower quadrant. Nausea appears improved. Patient admitted that she did not finish course of her recent outpatient therapy for diverticulitis.) Physical Examination - Vital Signs Temperature: 98.2 F Blood Pressure: 103/70 Pulse: 96 Respirations: 18 Pulse Ox (%): 98 - Physical Exam General: Alert, In no apparent distress, Oriented x3, Cooperative HEENT: Atraumatic Neck: Supple Respiratory: Clear to auscultation bilaterally, Normal air movement Cardiovascular: Normal pulses, Regular rate/rhythm Gastrointestinal: Hypoactive, Soft and benign, Non-distended, No masses, No rebound, No guarding, Tenderness (Pain to the left lower quadrant remains unchanged) Neurological: Normal speech, Normal strength at 5/5 x4 extr, Normal tone, Normal affect - Studies Medications List Reviewed: Yes Assessment & Plan Discharge Plan: Home Plan to discharge in: Greater than 2 days Physician Review Additional Text: Impression: Left lower abdominal pain, nausea, vomiting secondary to recurrent acute sigmoid /descending diverticulitis Tobacco/alcohol abuse Plan: Patient admitted not finishing her recent course of outpatient diverticular antibiotic therapy. Patient now with recurrent diverticulitis. Continue with IV fluids, IV medication for pain and nausea, and IV antibiotic therapy-Flagyl/ Cipro. Will keep the patient NPO. Will adjust medication for pain for better control. Encourage ambulation. Will provide incentive spirometer. GI, who has seen patient as an outpatient, consulted. Await recommendations. Once pain significantly improved then her oral intake can be started. For now all patient remains NPO. Will provide nicotine patch as needed. Patient remains on DVT prophylaxis-Lovenox. Patient will require colonoscopy in 6-8 weeks. I will turn the service over to Dr. López tomorrow. I will go over the plan of care with her. Time Spent Managing Pts Care (In Minutes): 55
[2018-09-19] MEDS: FAMOTIDINE 20 MG/2 ML VIAL IV SCH ×2 (09:18→21:06)
[2018-09-19] MEDS: CIPROFLOXACIN 400mg IV 400 MG/200 ML BAG IV SCH ×2 (12:53→21:05)
[2018-09-19] MEDS: PROMETHAZINE 25 MG/ML VIAL IV PRN ×2 (15:00→20:58)
[2018-09-19] MEDS ORDERED: HYDROMORPHONE HCL 2 MG/ML inj IV ONE (20:36)
[2018-09-19] MEDS: ONDANSETRON 4 MG/2 ML VIAL IV SCH (20:59)
[2018-09-19] MEDS: Ringers Lactate 1,000 ML IV SCH (22:36)
[2018-09-19] MEDS: PIPER/TAZO/NS 3.375gm 3.375 GM/100 ML BAG IVPB SCH (23:23)
[2018-09-19] MEDS ORDERED: PIPER/TAZO/NS 3.375gm 6.750 GM/200 ML BAG ONE (23:24)
[2018-09-19] MEDS ORDERED: Ringers Lactate 500 ML IV SCH ×2 (23:45)
[2018-09-20] MEDS: METRONIDAZOLE 500mg IVPB 500 MG/100 ML BAG IV SCH ×3 (00:21→16:58)
[2018-09-20] MEDS: MEPERIDINE HCL 50 MG/ML AMP IV PRN ×4 (00:52→20:52)
[2018-09-20] MEDS: PROMETHAZINE 25 MG/ML VIAL IV PRN ×6 (00:53→20:53)
[2018-09-20 02:52] LABS: Urine Appearance CLOUDY; Urine Bilirubin NEGATIVE (NEG); Urine Blood NEGATIVE (NEG); Urine Color DK YELLOW; Urine Glucose NEGATIVE (NEG); Urine Protein NEGATIVE (NEG); Urine Specific Gravity 1.015 (1.005-1.030); Urine Urobilinogen 0.2 mg/dL (0.2-1.0); Urine pH 6.5 (5.0-7.0)
[2018-09-20 02:56] LABS: Urine Microscopic Reflex ORDER UMIC
[2018-09-20] MEDS: ONDANSETRON 4 MG/2 ML VIAL IV SCH ×4 (03:17→21:11)
[2018-09-20] MEDS: Ringers Lactate 1,000 ML IV SCH ×5 (03:17→18:30)
[2018-09-20] MEDS: FENTANYL CITR 100 MCG/2 ML IV PRN (03:22)
[2018-09-20 04:24] LABS: Urine Culture Reflex Order NOT NEEDED
[2018-09-20 04:25] LABS: Urine Bacteria <20 /HPF (<20); Urine Mucus 2+ /HPF (NONE SEEN); Urine RBC <5 /HPF (NONE SEEN); Urine Yeast FEW (NONE SEEN)
[2018-09-20 05:11] LABS: Absolute Lymphocytes (CBC) 0.8 K/uL (0.7-4.9); Absolute Monocytes 0.6 K/uL (0.1-1.3); Absolute Neutrophil 13.9 K/uL (1.8-8.0); Basophils % 0.1 % (0-1.3); Eosinophils % 0.2 % (0-4.4); Hematocrit 33.6 % (36.0-45.0); Lymphocytes % 5.2 % (15.3-44.8); MPV 8.6 fL (7.6-11.3); Monocytes % 3.8 % (3.3-12.3); RBC Red Blood Cell Count 3.25 M/uL (3.86-4.86)
[2018-09-20 05:26] LABS: BUN Blood Urea Nitrogen 3 mg/dL (7-18); Bicarbonate 27 mmol/L (21-32); Glucose Level 114 mg/dL (74-106); Potassium 3.3 mmol/L (3.5-5.1); Sodium Level 138 mmol/L (136-145)
[2018-09-20] MEDS: PIPER/TAZO/NS 3.375gm 3.375 GM/100 ML BAG IVPB SCH ×2 (05:50→16:59)
[2018-09-20] MEDS: NICOTINE 21 MG/PAT TD SCH (09:00)
[2018-09-20] MEDS: ENOXAPARIN 40 MG/0.4 ML SQ SCH (09:00)
[2018-09-20] MEDS: CIPROFLOXACIN 400mg IV 400 MG/200 ML BAG IV SCH ×2 (09:20→20:51)
[2018-09-20] MEDS: KCL 20 MEQ/100 mL IVPB 20 MEQ/100 ML BAG IV SCH ×2 (09:21→11:00)
[2018-09-20] MEDS: FAMOTIDINE 20 MG/2 ML VIAL IV SCH ×2 (09:22→20:52)
--- NOTE | 2018-09-20 11:51 | RAD REPORT ---
EXAM DESCRIPTION: RAD - Chest Single View - 09/19/2018 10:06 pm CLINICAL HISTORY: sepsis Chest pain. COMPARISON: <Comparisons> FINDINGS: Portable technique limits examination quality. The lungs are grossly clear. The heart is normal in size. No displaced fractures. IMPRESSION: No acute intrathoracic process suspected.
--- NOTE | 2018-09-20 13:42 | P.PN ---
Subjective Date of Service: 09/20/18 Primary Care Provider: none; GI-Dr. Hyde Chief Complaint: Abdominal pain, nausea, vomiting pt seeen and examined pt still having lower abdominal tenderness will start cl liquid diet and advance as tolerated Review of Systems 10-point ROS is otherwise unremarkable Physical Examination - Vital Signs Temperature: 98.9 F Blood Pressure: 112/80 Pulse: 81 Respirations: 20 Pulse Ox (%): 97 - Physical Exam General: Alert, In no apparent distress, Oriented x3 HEENT: Atraumatic, Normocephalic, PERRLA Neck: Supple Respiratory: Clear to auscultation bilaterally, Normal air movement Cardiovascular: No edema, Regular rate/rhythm, Normal S1 S2 Gastrointestinal: Normal bowel sounds, Soft and benign, Tenderness Musculoskeletal: No clubbing, No swelling, No erythema Integumentary: No rashes Neurological: Normal speech, Normal strength at 5/5 x4 extr - Studies Microbiology Data (last 24 hrs): 09/18/18 08:35 Clean Catch Urine [place] Count - Final <10,000 CFU/ML. 09/18/18 08:35 Clean Catch Urine - Final MIXED ANNA. Medications List Reviewed: Yes Assessment And Plan - Current Problems (Diagnosis) (1) Acute diverticulitis Current Visit: Yes Status: Acute - Plan acute diverticulitis active smoker plan: IV abx cipro and flagyl antiemetic prn advance diet as tolerated Gi consult IVF hydration nictine patch dvt ppx Discharge Plan: Home Plan to discharge in: 24 Hours
--- NOTE | 2018-09-20 14:19 | P.PN ---
Subjective Date of Service: 09/20/18 Primary Care Provider: none; GI-Dr. Hyde Chief Complaint: Abdominal pain, nausea, vomiting Subjective: Improving (Less abdominal pain, N/V. WBC plateauing at 15.1 to 15.4 (up from 12.3 from the day before). Polys decreasing from 92 to 91%.) Physical Examination - Vital Signs Temperature: 98.9 F Blood Pressure: 112/80 Pulse: 81 Respirations: 20 Pulse Ox (%): 97 - Studies Microbiology Data (last 24 hrs): 09/18/18 08:35 Clean Catch Urine [place] Count - Final <10,000 CFU/ML. 09/18/18 08:35 Clean Catch Urine - Final MIXED ANNA. Medications List Reviewed: Yes Assessment And Plan - Current Problems (Diagnosis) (1) LLQ abdominal pain Current Visit: Yes Status: Acute Comment: Improved. (2) RLQ abdominal pain Current Visit: Yes Status: Acute Comment: Improved. (3) Abnormal CT of the abdomen Current Visit: Yes Status: Acute (4) Sepsis Current Visit: Yes Status: Acute Comment: Plateauing, see above. (5) Acute diverticulitis Current Visit: Yes Status: Acute Comment: Slow to improve. - Plan REC: 1) restart Zosyn 2) NPO except limited ice chips 3) continue prn pain medications / anti-emetics Physician Review Additional Text: Impression: Left lower abdominal pain, nausea, vomiting secondary to recurrent acute sigmoid /descending diverticulitis Tobacco/alcohol abuse Plan: Patient admitted not finishing her recent course of outpatient diverticular antibiotic therapy. Patient now with recurrent diverticulitis. Continue with IV fluids, IV medication for pain and nausea, and IV antibiotic therapy-Flagyl/ Cipro. Will keep the patient NPO. Will adjust medication for pain for better control. Encourage ambulation. Will provide incentive spirometer. GI, who has seen patient as an outpatient, consulted. Await recommendations. Once pain significantly improved then her oral intake can be started. For now all patient remains NPO. Will provide nicotine patch as needed. Patient remains on DVT prophylaxis-Lovenox. Patient will require colonoscopy in 6-8 weeks. I will turn the service over to Dr. López tomorrow. I will go over the plan of care with her.
[2018-09-20] MEDS ORDERED: KCL 20 MEQ/100 mL IVPB 20 MEQ/100 ML BAG IV SCH (16:00)
[2018-09-20 16:32] LABS: Absolute Lymphocytes (CBC) 0.7 K/uL (0.7-4.9); Absolute Monocytes 0.4 K/uL (0.1-1.3); Absolute Neutrophil 11.6 K/uL (1.8-8.0); Basophils % 0.4 % (0-1.3); Eosinophils % 0.6 % (0-4.4); Hematocrit 33.1 % (36.0-45.0); Lymphocytes % 5.5 % (15.3-44.8); MPV 8.5 fL (7.6-11.3); Monocytes % 3.3 % (3.3-12.3); RBC Red Blood Cell Count 3.24 M/uL (3.86-4.86)
[2018-09-20 16:43] LABS: BUN Blood Urea Nitrogen 3 mg/dL (7-18); Bicarbonate 26 mmol/L (21-32); Glucose Level 96 mg/dL (74-106); Potassium 3.4 mmol/L (3.5-5.1); Sodium Level 141 mmol/L (136-145)
[2018-09-21] MEDS: METRONIDAZOLE 500mg IVPB 500 MG/100 ML BAG IV SCH ×3 (00:22→17:29)
[2018-09-21] MEDS: PIPER/TAZO/NS 3.375gm 3.375 GM/100 ML BAG IVPB SCH ×3 (00:22→17:29)
[2018-09-21] MEDS: Ringers Lactate 1,000 ML IV SCH ×5 (00:40→20:40)
[2018-09-21] MEDS: PROMETHAZINE 25 MG/ML VIAL IV PRN ×4 (01:19→14:03)
[2018-09-21] MEDS: ONDANSETRON 4 MG/2 ML VIAL IV SCH ×5 (03:44→21:00)
[2018-09-21] MEDS: MEPERIDINE HCL 50 MG/ML AMP IV PRN ×3 (04:00→14:24)
[2018-09-21 06:14] LABS: Absolute Lymphocytes (CBC) 0.8 K/uL (0.7-4.9); Absolute Monocytes 0.5 K/uL (0.1-1.3); Basophils % 0.2 % (0-1.3); Eosinophils % 1.6 % (0-4.4); Hematocrit 31.2 % (36.0-45.0); Lymphocytes % 6.4 % (15.3-44.8); MPV 8.8 fL (7.6-11.3); Monocytes % 4.4 % (3.3-12.3); RBC Red Blood Cell Count 3.07 M/uL (3.86-4.86)
[2018-09-21 06:20] LABS: BUN Blood Urea Nitrogen 3 mg/dL (7-18); Bicarbonate 24 mmol/L (21-32); Glucose Level 80 mg/dL (74-106); Magnesium 1.7 mg/dL (1.8-2.4); Potassium 3.7 mmol/L (3.5-5.1); Sodium Level 138 mmol/L (136-145)
[2018-09-21] MEDS: ENOXAPARIN 40 MG/0.4 ML SQ SCH (09:00)
[2018-09-21] MEDS ORDERED: MAGNESIUM SULFATE 1 gm IVPB 1 GM/100 ML BAG IV ONE (09:00)
[2018-09-21] MEDS: NICOTINE 21 MG/PAT TD SCH (09:00)
[2018-09-21] MEDS ORDERED: POTASSIUM CL SA 10 MEQ TAB PO ONE (09:00)
[2018-09-21] MEDS: CIPROFLOXACIN 400mg IV 400 MG/200 ML BAG IV SCH ×2 (09:16→21:17)
[2018-09-21] MEDS: FAMOTIDINE 20 MG/2 ML VIAL IV SCH ×2 (09:18→21:22)
--- NOTE | 2018-09-21 11:45 | P.PN ---
Subjective Date of Service: 09/21/18 Primary Care Provider: none; GI-Dr. Hyde Chief Complaint: Abdominal pain, nausea, vomiting pt seeen and examined pt still having lower abdominal tenderness pt wants to eat and was asking to advance her diet and attributes her N/V to pain medications will keep NPO as per GI recommendations Review of Systems 10-point ROS is otherwise unremarkable Physical Examination - Vital Signs Temperature: 98.2 F Blood Pressure: 119/79 Pulse: 82 Respirations: 16 Pulse Ox (%): 97 - Physical Exam General: Alert, In no apparent distress, Oriented x3 HEENT: Atraumatic, Normocephalic, PERRLA Respiratory: Clear to auscultation bilaterally, Normal air movement Cardiovascular: No edema, Regular rate/rhythm, Normal S1 S2 Gastrointestinal: Normal bowel sounds, Soft and benign, Non-distended Musculoskeletal: No clubbing Integumentary: No rashes Neurological: Normal speech - Studies Microbiology Data (last 24 hrs): 09/18/18 08:35 Clean Catch Urine [place] Count - Final <10,000 CFU/ML. 09/18/18 08:35 Clean Catch Urine - Final MIXED ANNA. Medications List Reviewed: Yes Assessment And Plan - Current Problems (Diagnosis) (1) Acute diverticulitis Current Visit: Yes Status: Acute - Plan acute diverticulitis active smoker plan: IV abx cipro and flagyl antiemetic prn advance diet as tolerated Gi consult IVF hydration nictine patch dvt ppx Physician Review Additional Text: Impression: Left lower abdominal pain, nausea, vomiting secondary to recurrent acute sigmoid /descending diverticulitis Tobacco/alcohol abuse Plan: Patient admitted not finishing her recent course of outpatient diverticular antibiotic therapy. Patient now with recurrent diverticulitis. Continue with IV fluids, IV medication for pain and nausea, and IV antibiotic therapy-Flagyl/ Cipro. Will keep the patient NPO. Will adjust medication for pain for better control. Encourage ambulation. Will provide incentive spirometer. GI, who has seen patient as an outpatient, consulted. Await recommendations. Once pain significantly improved then her oral intake can be started. For now all patient remains NPO. Will provide nicotine patch as needed. Patient remains on DVT prophylaxis-Lovenox. Patient will require colonoscopy in 6-8 weeks. I will turn the service over to Dr. López tomorrow. I will go over the plan of care with her.
[2018-09-21 13:22] LABS: Absolute Lymphocytes (CBC) 0.9 K/uL (0.7-4.9); Absolute Monocytes 0.5 K/uL (0.1-1.3); Absolute Neutrophil 9.6 K/uL (1.8-8.0); Basophils % 0.6 % (0-1.3); Eosinophils % 1.5 % (0-4.4); Hematocrit 32.1 % (36.0-45.0); Lymphocytes % 7.7 % (15.3-44.8); MPV 8.4 fL (7.6-11.3); Monocytes % 4.6 % (3.3-12.3); RBC Red Blood Cell Count 3.16 M/uL (3.86-4.86)
[2018-09-21 13:36] LABS: BUN Blood Urea Nitrogen 3 mg/dL (7-18); Bicarbonate 26 mmol/L (21-32); Glucose Level 113 mg/dL (74-106); Potassium 3.3 mmol/L (3.5-5.1); Sodium Level 138 mmol/L (136-145)
[2018-09-21] MEDS ORDERED: KCL 20 MEQ/100 mL IVPB 20 MEQ/100 ML BAG IV SCH ×2 (15:00→21:00)
[2018-09-21 16:22] LABS: BUN Blood Urea Nitrogen 2 mg/dL (7-18); Bicarbonate 23 mmol/L (21-32); Glucose Level 87 mg/dL (74-106); Potassium 3.4 mmol/L (3.5-5.1); Sodium Level 139 mmol/L (136-145)
[2018-09-21 16:25] LABS: Absolute Lymphocytes (CBC) 0.6 K/uL (0.7-4.9); Absolute Monocytes 0.5 K/uL (0.1-1.3); Absolute Neutrophil 7.4 K/uL (1.8-8.0); Basophils % 0.4 % (0-1.3); Eosinophils % 2.1 % (0-4.4); Hematocrit 29.9 % (36.0-45.0); Lymphocytes % 6.8 % (15.3-44.8); MPV 8.4 fL (7.6-11.3); RBC Red Blood Cell Count 2.93 M/uL (3.86-4.86)
[2018-09-21] MEDS: MORPHINE 2 MG/ML SYR IV PRN ×2 (17:31→21:23)
--- NOTE | 2018-09-21 20:18 | P.PN ---
Subjective Date of Service: 09/21/18 Primary Care Provider: none; GI-Dr. Hyde Chief Complaint: Abdominal pain, nausea, vomiting Subjective: Improving (Feels much better. Abdominal pain (LLQ/RLQ) is down 50% . No N/V. Tolerating ice chips and sips of water. She is hungry and had small liquid stool today. She is refusing many of her prn pain meds and anti- emetics, stating she does not like to take medications. Demerol gave her some mild delerium possibly and was d/c'd; seems to be tolerating Morphine though. WBC down from 15.4 to 8.8 today and polys from 91% to 85%.) Review of Systems 10-point ROS is otherwise unremarkable General: Weakness (Improved.) Gastrointestinal: Abdominal Pain (Improved.) Neurological: Weakness (Improved.) Physical Examination - Vital Signs Temperature: 97.5 F Blood Pressure: 113/80 Pulse: 82 Respirations: 16 Pulse Ox (%): 99 - Physical Exam General: Alert, In no apparent distress, Oriented x3, Cooperative, Disheveled ( Improved.) HEENT: Atraumatic, Normocephalic, PERRLA, EOMI Neck: Supple Respiratory: Normal air movement Cardiovascular: Normal pulses Gastrointestinal: No rebound, No guarding, Tenderness (Improved.) Neurological: Normal speech, Normal strength at 5/5 x4 extr - Studies Medications List Reviewed: Yes Assessment And Plan - Current Problems (Diagnosis) (1) LLQ abdominal pain Current Visit: Yes Status: Acute Comment: Improved. (2) RLQ abdominal pain Current Visit: Yes Status: Acute Comment: Improved. (3) Abnormal CT of the abdomen Current Visit: Yes Status: Acute (4) Sepsis Current Visit: Yes Status: Acute Comment: Improved. WBC 15.4 to 8.8 now. (5) Acute diverticulitis Current Visit: Yes Status: Acute Comment: Slow to improve. - Plan REC: 1) continue IV antibiotics 2) clear liquid diet 3) continue prn pain medications / anti-emetics 4) colonoscopy in 4-6 weeks Physician Review Additional Text: Impression: Left lower abdominal pain, nausea, vomiting secondary to recurrent acute sigmoid /descending diverticulitis Tobacco/alcohol abuse Plan: Patient admitted not finishing her recent course of outpatient diverticular antibiotic therapy. Patient now with recurrent diverticulitis. Continue with IV fluids, IV medication for pain and nausea, and IV antibiotic therapy-Flagyl/ Cipro. Will keep the patient NPO. Will adjust medication for pain for better control. Encourage ambulation. Will provide incentive spirometer. GI, who has seen patient as an outpatient, consulted. Await recommendations. Once pain significantly improved then her oral intake can be started. For now all patient remains NPO. Will provide nicotine patch as needed. Patient remains on DVT prophylaxis-Lovenox. Patient will require colonoscopy in 6-8 weeks. I will turn the service over to Dr. López tomorrow. I will go over the plan of care with her.
[2018-09-22] MEDS ORDERED: MAGNESIUM SULFATE 1 gm IVPB 1 GM/100 ML BAG IV ONE
[2018-09-22] MEDS: PIPER/TAZO/NS 3.375gm 3.375 GM/100 ML BAG IVPB SCH ×2 (00:15→08:47)
[2018-09-22] MEDS: Ringers Lactate 1,000 ML IV SCH ×3 (00:15→08:47)
[2018-09-22] MEDS: METRONIDAZOLE 500mg IVPB 500 MG/100 ML BAG IV SCH ×2 (00:15→08:37)
[2018-09-22 00:27] VITALS: O2SAT 96
[2018-09-22] MEDS: ONDANSETRON 4 MG/2 ML VIAL IV SCH ×3 (01:28→15:00)
[2018-09-22] MEDS: MORPHINE 2 MG/ML SYR IV PRN ×3 (01:29→12:42)
[2018-09-22] MEDS: PROMETHAZINE 25 MG/ML VIAL IV PRN ×2 (06:01→12:43)
[2018-09-22 06:16] LABS: Absolute Lymphocytes (CBC) 0.9 K/uL (0.7-4.9); Absolute Monocytes 0.5 K/uL (0.1-1.3); Absolute Neutrophil 6.1 K/uL (1.8-8.0); Basophils % 0.4 % (0-1.3); Eosinophils % 2.9 % (0-4.4); Hematocrit 33.6 % (36.0-45.0); Lymphocytes % 11.5 % (15.3-44.8); MPV 8.1 fL (7.6-11.3); RBC Red Blood Cell Count 3.28 M/uL (3.86-4.86)
[2018-09-22 06:31] LABS: BUN Blood Urea Nitrogen 2 mg/dL (7-18); Bicarbonate 25 mmol/L (21-32); Glucose Level 86 mg/dL (74-106); Magnesium 2.1 mg/dL (1.8-2.4); Potassium 3.9 mmol/L (3.5-5.1); Sodium Level 139 mmol/L (136-145)
[2018-09-22] MEDS: CIPROFLOXACIN 400mg IV 400 MG/200 ML BAG IV SCH (08:38)
[2018-09-22] MEDS: ENOXAPARIN 40 MG/0.4 ML SQ SCH (08:39)
[2018-09-22] MEDS: FAMOTIDINE 20 MG/2 ML VIAL IV SCH (08:40)
[2018-09-22] MEDS: NICOTINE 21 MG/PAT TD SCH (08:40)
[2018-09-22] MEDS ORDERED: POTASSIUM CL SA 10 MEQ TAB PO ONE (09:00)
--- NOTE | 2018-09-22 14:40 | P.DS ---
Admission Date: 09/18/18 Discharge Date: 09/22/18 Primary Care Provider: none; GI-Dr. Hyde Reason for Admission: Abdominal pain, nausea, vomiting Consultations: GI - Problems (1) Sepsis Current Visit: Yes Status: Resolved Qualifiers: Sepsis type: sepsis due to unspecified organism Qualified Code(s): A41.9 - Sepsis, unspecified organism (2) Acute diverticulitis Current Visit: Yes Status: Acute Brief History of Present Illness: 43 yo CF presented to the ER with lower quadrant abdominal pain, nausea and vomiting. Symptoms of abdominal pain started last night to the lower quadrant, mainly to the left side. It was associated with nausea and vomiting. She was not able to take good oral intake. She mentions that she sees GI as an outpatient and was treated for diverticulitis about 2 weeks ago. She was given 2 antibiotics and anti nausea medication. Pain worsened this am. She is not any better. She came to the ER for evaluation. In the ER she was given medication for pain and nausea. CT shows acute descending and sigmoid diverticulitis. No free air or abscess noted. WBC is 12.8. Lipase negative. She will be admitted for inpatient treatment for recurrent diverticulitis. When I saw the patient in the ER, she was still having some pain to the lower quadrant. Some nausea noted. She has not had a colonoscopy but was to get one with GI once her diverticulitis had resolved. Allergies Hospital Course: Overall during the hospital stay patient remained stable Patient was initially admitted to the hospital for acute diverticulitis For patient's acute diverticulitis patient was started on IV ciprofloxacin and Flagyl. Was kept NPO. When patient had some improvement in her diarrhea and abdominal pain patient diet was advanced to full liquid diet. Patient was able to tolerate the full liquid diet well and thus was advanced to a bland diet. At that time patient was able to tolerate her bland diet thus her medication was switched over to oral supplement Flagyl. Patient did not have any further diarrheal episode and no further abdominal pain was noted. Patient denies having any fever chills nausea vomiting at that time as well. Patient thus was discharged home under stable condition was given a prescription for p.o. ciprofloxacin and Flagyl Vital Signs/Physical Exam: Temp Pulse Resp BP Pulse Ox 99.0 F 74 18 118/80 97 09/22/18 12:00 09/22/18 12:00 09/22/18 12:00 09/22/18 12:00 09/22/18 12:00 General: Alert, In no apparent distress HEENT: Atraumatic, PERRLA, EOMI Neck: Supple, JVD not distended Respiratory: Clear to auscultation bilaterally, Normal air movement Cardiovascular: Regular rate/rhythm, Normal S1 S2 Gastrointestinal: Normal bowel sounds, No tenderness Musculoskeletal: No tenderness Integumentary: No rashes Neurological: Normal speech, Normal tone, Normal affect Lymphatics: No axilla or inguinal lymphadenopathy Laboratory Data at Discharge: WBC 7.8 K/uL (4.3-10.9) 09/22/18 05:53 Hgb 11.3 g/dL (12.0-15.0) L 09/22/18 05:53 Hct 33.6 % (36.0-45.0) L 09/22/18 05:53 Plt Count 318 K/uL (152-406) D 09/22/18 05:53 Sodium 139 mmol/L (136-145) 09/22/18 05:53 Potassium 3.9 mmol/L (3.5-5.1) 09/22/18 05:53 BUN 2 mg/dL (7-18) L 09/22/18 05:53 Creatinine 0.37 mg/dL (0.55-1.3) L 09/22/18 05:53 Glucose 86 mg/dL (74-106) 09/22/18 05:53 Magnesium 2.1 mg/dL (1.8-2.4) 09/22/18 05:53 Total Bilirubin 0.8 mg/dL (0.2-1.0) 09/18/18 08:24 AST 27 U/L (15-37) 09/18/18 08:24 ALT 61 U/L (12-78) 09/18/18 08:24 Alkaline Phosphatase 121 U/L (45-117) H 09/18/18 08:24 Lipase 102 U/L (73-393) 09/18/18 08:24 Home Medications: Ondansetron HCl [Zofran] 4 mg PO Q6H PRN 09/18/18 Ciprofloxacin HCl [Ciprofloxacin 100 MG Tablet] 500 mg PO Q12H #28 tablet Metronidazole 500 mg PO Q6H #56 tablet 09/22/18 New Medications: Ciprofloxacin HCl [Ciprofloxacin 100 MG Tablet] 500 mg PO Q12H #28 tablet Metronidazole 500 mg PO Q6H #56 tablet
[2018-09-22 16:20] VITALS: BP 118/83; TEMP 99.1
== END 2018-09-22 16:16 | disposition home or self-care (01) | DRG 391 ==
LOC: ER 07:52 → ERHOLD 11:03 → 4TH 12:18 → 2ND 09-19 17:52
PROVIDERS: ADMIT Family Medicine; ATTEND Family Medicine
DX: K57.32 Diverticulitis of large intestine without perforation or abscess without bleeding (principal); A41.9 Sepsis, unspecified organism; F17.210 Nicotine dependence, cigarettes, uncomplicated
CPT/HCPCS: 36415; 71045; 74177; 80048; 80076; 81003; 81015; 81025; 82962; 83605; 83690; 83735; 84132; 84145; 85025; 87040; 87086; 87088; 96361; 96365; 96367; 96375; 99285; J0696; J0744; J1170; J1650; J2175; J2270; J2405; J2543; J2550; J3010; J3475; J7030; Q9967

== ENCOUNTER 2024-03-10 08:12 | Inpatient (IN) | payer OTHER ==
[2024-03-10 08:59] VITALS: BMI 26.5
[2024-03-10] MEDS: ROSUVASTATIN 10 MG TAB PO SCH (14:29)
[2024-03-10] MEDS: GABAPENTIN 400 MG CAP PO SCH (14:29)
[2024-03-10 16:44] LABS: Specific Gravity 1.013 (1.005-1.030); Sqamous Epithelial <5 /HPF (None Seen); Urine Bacteria <20 /HPF (<20); Urine Bilirubin NEGATIVE (Negative); Urine Blood Negative (Negative); Urine Clarity Turbid (Clear); Urine Color Light-Yellow (Yellow); Urine Crystals Unidentified Few /HPF (None Seen); Urine Culture Reflex Order NOT NEEDED; Urine Glucose NEGATIVE (Negative); Urine Ketones NEGATIVE (Negative); Urine Micro Reflex YN NO BILL MICROSCOPIC; Urine Mucus 2+ /HPF (None Seen); Urine Nitrite NEGATIVE (Negative); Urine Protein NEGATIVE (Negative); Urine RBC <5 /HPF (None Seen); Urine Urobilinogen Normal (Normal); Urine WBC <5 /HPF (<5); Urine Yeast (Budding) Trace /HPF (None Seen); Urine pH 6.5 (5.0-7.0)
[2024-03-10] MEDS: carvediloL 3.125 MG TAB PO SCH (17:17)
[2024-03-10] MEDS ORDERED: TRIAMCINOLONE ACET 0.1% CREAM 80 GM TOP PRN (19:19)
[2024-03-10] MEDS ORDERED: CRANBERRY FRUIT EXTRACT 425 MG CAPSULE PO SCH (20:00)
[2024-03-10] MEDS ORDERED: carvediloL 3.125 MG TAB PO SCH (20:00)
[2024-03-10] MEDS: INSULIN REGULAR (HUMAN) 100 UNIT/ML SQ SCH (20:05)
[2024-03-10] MEDS: APIXABAN 2.5 MG TABLET PO SCH (20:06)
[2024-03-10] MEDS: DULOXETINE 20 MG CAP PO SCH (20:06)
--- NOTE | 2024-03-10 23:15 | HP ---
Date of Admission: 03/10/2024 Time Of Service: 2:30 p.m. Chief Complaint: "I am falling, I need to get more steady." History Of Present Illness: Ms. Gan is 49-year-old patient with multiple medical problems includ ing hypertension, diabetes mellitus, diverticular disease, had multiple surgeries in the abdominal re gion with some revisions, who presented to the [facility] for generalized weakness, imbalance, and poor appetite. She has had chronic alcoholism and her workup suggested Wernicke-Kors akoff syndrome with acute small bowel obstruction. Surgery was consulted. NG tube placed for gastri c decompression. She had a small bowel follow-through study, which showed water-soluble contrast and the study reached the colon within 12 hours and the rectum within 24 hours. There was small bowel d ilatation, unchanged from comparison study done on a CT on 02/26/2024. She did improve clinically an d stable after NG tube removal. She tolerated regular diet without issue. However, her course was c omplicated by UTI, for which she was treated with Zosyn and had improved hydration and worked on her mobility. However, due to the chronic alcoholism which affects her peripheral nerves, she has develo ped significant peripheral neuropathy with difficulty with gait, balance, coordination, and tendency to fall. She did have insurance authorized week at [facility] and was seen there, then discharge d home to await approval for additional study and workup. However while there, she was noted to be g etting significantly weaker with worsening balance, gait, coordination, and was evaluated and determi sherry to be appropriate for inpatient rehabilitation on March 09, 2024. At this point, her evaluatio n identified she required moderate assistance for bed mobility, ouc-df-azeyn transfers, contact guard assistance for ambulation, limited to about 15 feet before she is fatigued and has to sit. Also has dizziness going from supine to sitting, likely related to orthostatic changes and autonomic dysfunct ion related to alcoholic neuropathy. She has had multiple falls over several months and has had even more of a few days after being discharged home to await a rehab approval appointment. At this point , she does require intensive therapy to help her return to her prior level of functioning and to beco me independent and reduce the risk of rehospitalization. In addition, her alcoholic neuropathy likel y needs to be addressed. Risk of alcohol withdrawal needs to be addressed and issues of sleep, const ipation which are other autonomic issues will need to be currently addressed. If she is to be discha rged home, she would likely worsen and [facility] may not necessarily give her the best opportun ity to recover and do very well. She is therefore admitted to the acute inpatient rehabilitation [facility] for physical, occupational, and if need be speech therapy along with medical management. Past Medical History: Diabetes mellitus, hypertension, diverticular disease complicated by colonic p erforation, for which she has had an open damage control laparotomy and had a re-exploratory Jg procedure complicated by fascial dehiscence and this was in 2021. She has had hernia repair and Roni tmann reversal on 06/25/2022. She had splenic vein thrombosis, hepatic stenosis, chronic alcohol use of course, and an abdominal washout and wound VAC in July of 2021. Allergies: MORPHINE. X-rays: The small bowel x-ray series on 03/01 shows no complete bowel obstruction, similar degree of small bowel dilatation suggestive of partial obstruction. CT of the abdomen and pelvis on 06/28 sanjuana ws multiple fluid-filled dilated loops of proximal to distal small bowel measuring 4.5 cm with a tabor sition point in the right lower quadrant concerning for small bowel obstruction. There are basal opa cities related to atelectasis versus pneumonia identified. A KUB x-ray on 02/27 shows nonspecific di lated loops of small bowel measuring 4.8 cm relative to possibly gas over descending colon, nonspecif ic dilated loops of small bowel measuring 4.8 cm gas in the rectum. Ultrasound of the abdomen, no Ca ssidy identified. Brain MRI without contrast on 02/20, no acute intracranial abnormalities. CT scan of the head on 02/19, no acute intracranial abnormalities. Current Medications: Eliquis 2.5 mg twice daily, Coreg 3.125 mg twice daily, folic acid 1 mg daily, gabapentin 800 mg 3 times daily, Crestor 10 mg daily, thiamine 100 mg daily, Ultram 50 mg daily, Desy rel 50 mg daily. Laboratory Studies: White blood cell count 4.08, hemoglobin 9.7, hematocrit 29, platelets 213. Sodi um 139, potassium 3.1, glucose 94, BUN is less than 2, her creatinine 0.4, calcium 7.9. Family History: Noncontributory. Social History: The patient does have chronic alcohol use. No recent tobacco and no IV drug use. Review of Systems: Diffuse weakness of upper and lower extremity. Reports problems with balance and gait and walking du e to fall and some mild confusion, disorientation. Otherwise, no new or positive findings. Current Level Of Functioning: For eating, supervision. Oral hygiene, supervision. Toileting, moder ate assistance. For bathing, dependent. Upper body dressing, moderate assistance. Lower body dress ing, maximum assistance. Donning and doffing footwear, maximum assistance. For rolling [id number]-do-gswy t, [id number], and sitting on side of bed, moderate assistance required. For transfer from bed to chair to toilet, moderate assistance required. Ambulation with a rolling walker, covered 25 feet wit h supervision. Rehab And Medical Assessment And Plan: Ms. Gan is admitted to the inpatient rehabilitation unit with impairment category 06, neurologic condition. Her impairment group code is 03.3, polyneuropathy . Etiologic diagnosis, alcoholic polyneuropathy. Comorbidities are alcohol abuse, anemia, decreased mobility, decreased physical functioning, diabetes mellitus, hypertension, malnutrition, risk of alc ohol withdrawal, peripheral neuropathy, tachycardia, falls. In addition, cystitis. Plan: 1.She will have physical and occupational therapy, 3 hours a day, 5 of 7 days. 2.For her confusion and Wernicke's encephalopathy possibility, speech for cognition and safety aware ness and making good sound decisions regarding her medical care. 3.We will continue management of comorbidities including trazodone for insomnia and tramadol for daryl n. Her thiamine for alcohol withdrawal along with folic acid, Coreg 3.125 mg twice daily for blood p ressure management, Eliquis 2.5 mg twice daily for DVT prophylaxis. Comorbidities That Are Impacting Rehabilitation: As noted, it appears the alcohol and alcoholic neur opathy puts her at high risk of falls because of her inability to be fully aware of where her feet, k nees, and hips are due to decreased sensory input. She will be using a rolling walker at all times. If she is capable of, a cane will be used, likely prong cane, 24 hours wheelchair mobilization. Her hypertension will be addressed. There may be autonomic dysfunction with lower blood pressures, and blood pressures in terms of her exam shows 93/64, pulse 95, respiratory rate 18, temperature 97.3, ox ygen saturation 95%. In terms of her examination, she did not show focal neurologic deficits, but st ocking-glove loss, depressed reflexes and coordination, which is likely to be a contributing factor t o her multiple falls. Rehab Specific Plan: Ms. Gan will have physical, occupational, and speech therapy, 3.5 hours, 5 of 7 days to improve her ability to safely transfer from a bed to a chair to a wheelchair to a walker and to a Rollator if able. Also mobilizing via wheelchair. She will work with the therapist to be able to go up and down steps with bilateral handrails and work with occupational therapy to help her with dressing upper and lower body, donning and doffing footwear, and going in and out of the bathroo m, in and out of the toilet to perform toileting and showering all safely. If need be, she will have speech to help with cognition, safe decision making, and help her return towards an alcohol free [facility]. Ms. Gan has a good understanding of the process of admission to the inpatient rehabilitation [facility] and how she will benefit from physical, occupational, and if need be speech therapy. She will h ave 24 hours a day, 7 days a week skilled rehabilitation and nursing, daily physician evaluation and management, and social media project manager evaluation and management for discharge planning, home equipment, and to continue therapy after discharge. If need be, additional help will be sought from the Psychiatri c Service and the Internal Medicine Service. Barriers To Discharge: Given the potential for alcohol withdrawal, she may end [facility], but that will be mitigated against with benzodiazepine such as Librium, folic acid, thiamine, multivitamin to help reduce the risk of delirium tremens. Length Of Stay: Around 12 days. Disposition: Home with family and Home Health to continue. Prognosis: Good. Code Status: Full code. Rehab Specific Goals: 1.Become independent with upper and lower body dressing and donning and doffing footwear. 2.Independently mobilize a rolling walker 250 feet and a wheelchair 250 feet and a cane if possible for around 250 feet. 3.Go up and down 10 steps with bilateral handrails. 4.Perform all cognitive functioning including safety awareness, good judgment, and beginning to stop any alcohol consumption. Hopefully, she will be able to do those independently. The above goals were reviewed with Ms. Gan and she is in agreement. By signing this document, I acknowledge I personally performed a full physical examination on Ms. Jese de los santos no later than 24 hours after her admission to the inpatient rehabilitation facility [facility] that she is able to tolerate the above course of treatment at an intensive level for reasonable pe riod of time. A detailed individualized plan of care for her will be completed by hospital day 4 bas ed on the preadmission screen, history and physical, and therapy evaluations. ANDREA Voice ID: [id number]
[2024-03-11 05:50] LABS: Absolute Basophils 0.1 K/uL (0-0.5); Absolute Eosinophils 0.3 K/uL (0-0.5); Absolute Lymphocytes (CBC) 1.9 K/uL (0.7-4.9); Absolute Monocytes 0.5 K/uL (0.1-1.3); Absolute Neutrophil 4.1 K/uL (1.8-8.0); Basophils % 0.9 % (0-1.3); Hematocrit 30.4 % (36.0-45.0); Lymphocytes % 28.3 % (15.3-44.8); MCH 31.4 pg (27.0-35.0); MCV 95.3 fL (80-100); MPV 8.5 fL (7.6-11.3); Monocytes % 6.6 % (3.3-12.3); Neutrophils % 60.2 % (41.7-73.7); Nucleated Red Blood Cells % 0.1 % (0-0); Platelets 272 thou/uL (152-406); RBC Red Blood Cell Count 3.19 M/uL (3.86-4.86); Red Cell Distribution Width 17.6 % (12.1-15.2)
[2024-03-11 06:07] LABS: Albumin 2.2 g/dL (3.4-5.0); Anion Gap 9.9 mEq/L (5.0-15.0); Potassium 3.9 mEq/L (3.5-5.1); Prealbumin 14.8 mg/dL (20-40)
[2024-03-11] MEDS: THIAMINE HCL 100 MG TABLET PO SCH (08:26)
[2024-03-11] MEDS: CRANBERRY FRUIT EXTRACT 425 MG CAPSULE PO SCH (08:26)
[2024-03-11] MEDS: MULTIVITAMIN TAB PO SCH (08:27)
[2024-03-11] MEDS: carvediloL 3.125 MG TAB PO SCH (08:27)
[2024-03-11] MEDS: FOLIC ACID 1 MG TABLET PO SCH (08:27)
[2024-03-11] MEDS: ENSURE HIGH PROTEIN 237 ML CAN PO SCH (08:28)
[2024-03-11] MEDS ORDERED: KETOCONAZOLE TOP PRN (11:00)
[2024-03-11] MEDS ORDERED: TRIAMCINOLONE 1% TOP PRN (11:00)
[2024-03-11] MEDS: TRAMADOL HCL 50 MG TAB PO PRN (17:19)
--- NOTE | 2024-03-11 19:42 | PN ---
Date of Progress Note: 03/11/2024 Time Of Service: 1:10 p.m. Subjective: Ms. Gan is resting in bed. She said she does have some more pain in her feet, legs, and hands related to the alcohol related polyneuropathy. In addition, difficulty eating. Did not h ave much of an appetite for breakfast and lunch. She has no symptoms consistent with alcohol withdra wal. No tachycardia. No sweating. No anxiety and bounding changes in blood pressure. Review of Systems: No fevers, chills, nausea, vomiting, myalgias, arthralgias, rash, headache. Physical Examination: Vital Signs: Blood pressure 115/82, pulse 89, respiratory rate 16, temperature 98.2, oxygen saturati on 95%. Weight 145 pounds, height 5 feet 2 inches, BMI 26.6. General: Again, Ms. Gan is resting in bed. She is in no significant distress. HEENT: She is normocephalic, atraumatic. Sclerae anicteric. Oropharynx moist. Neck: Supple. Chest: Clear. Heart: Regular. Extremities: No significant clubbing, cyanosis, or edema noted in the lower extremities. Stocking-g love loss, light touch, temperature. Laboratory Studies: White blood cell count 6.9, hemoglobin 10.0, platelets 272. Sodium 139, potassi um 3.9, chloride 107, carbon dioxide 26, BUN 7, creatinine 0.48, glucose 104. Hemoglobin A1c is 4.9. Calcium 9.2. Magnesium 2.0. Albumin 2.2, prealbumin 14.8. Urinalysis shows turbid clarity, [address] es terase, trace budding yeast. X-ray/imaging: None. Medications: Eliquis 2.5 mg twice daily, Coreg 3.125 mg twice daily, Cymbalta now increased to 30 mg twice daily due to neuropathic pain. Continue gabapentin 800 mg 3 times daily, folic acid 1 mg agustin y, Megace 40 mg twice daily, Centrum Silver 1 tablet daily, Ensure Enlive 237 mL twice daily, Crestor 10 mg at bedtime, thiamine 100 mg daily, tramadol 50 mg twice daily, and trazodone 50 mg at bedtime for insomnia. Progress Made With Physical And Occupational Therapy: With physical therapy, she did complete 40 fee t twice and 75 feet once with minimum assistance using a Rollator. She managed to complete up and do wn 1 step, was pretty anxious. Wheelchair mobilization covered 100 feet with minimum assistance. Wi th occupational therapy, bed mobility with minimum assistance. Did report again up to 8/10 pain and some burning and numbness is noted. Did need maximal assistance for toileting and did report again w eakness and some giveaway in terms of pain in the lower and upper extremities. Assessment: Ms. Gan is a 49-year-old patient admitted to rehabilitation unit with an alcoholic p olyneuropathy manifesting with pain, numbness, and some slight weakness in the lower extremities and upper extremities. She has decreased mobility, decreased physical functioning. She does not have di abetes mellitus as hemoglobin A1c is normal and may be removed from her past medical history. She do es have hypertension, malnutrition, possibility of alcohol withdrawal, and cystitis will be looked fo r in terms of urine cultures, but so far no growth from her urine cultures, they are negative. Plan: She will continue with physical and occupational therapy 3 hours a day, 5/7 days. Continue wi thiamine to reduce the risk of alcohol withdrawal. Discontinue the a.c. and at bedtime glucose mo nitoring. Continue with Crestor for dyslipidemia, Ensure Enlive for malnutrition, Desyrel for insomn ia, Megace added for poor appetite, Cymbalta for neuropathic pain and improving mood, Coreg for blood pressure management, Eliquis for DVT prophylaxis, gabapentin at 800 mg 3 times daily dosage for hawk gement of alcoholic neuropathy. LB/MODL Voice ID: [id number] Report ID: [id number]
[2024-03-11] MEDS: MEGESTROL 40 MG TAB PO SCH (19:53)
[2024-03-11] MEDS: DULOXETINE 30 MG CAP PO SCH (19:53)
[2024-03-11] MEDS: TRAZODONE 50 MG TABLET PO PRN ×2 (19:58→20:45)
[2024-03-11] MEDS ORDERED: TRAZODONE 50 MG TABLET ONE (20:25)
[2024-03-12] MEDS: NA CHLORIDE 0.9% 1,000 ML IV SCH (14:00)
[2024-03-12] MEDS: MIDODRINE HCL 5 MG TABLET PO SCH (14:57)
--- NOTE | 2024-03-12 20:54 | PN ---
Date of Progress Note: 03/12/2024 Time Of Service: 1:10 p.m. Subjective: Ms. Gan is resting in bed. She does report significant back pain. However, her aff ect is not necessarily matched and reported 7 or 8/10 pain as she is indicating, however, that she sutherland s a high pain threshold and tolerance and is not necessarily showing that she has significant amount of pain. Review of Systems: No fevers or chills, nausea or vomiting. Did have some issues of sleep last night, but no new findin gs. She does report grossly neuropathic type pain proximally and distally of the upper and lower ext remities. Physical Examination: Vital Signs: Blood pressure is 93/63, her pulse 91, respiratory rate 16, temperature 98.1, oxygen sa turation 96%. It is noted that the patient did have some significant orthostatic changes as she was attempting to do therapy from sit to stand and ambulate and had to have a Trendelenburg position. Bl ood pressures in bed may go to about 104 to 105 over around 60 to 70. She did have medication regime n adjusted with the midodrine being added 5 mg 3 times daily. She has issues and is unable to wear a bdominal binders, but will have STACEY hose placed. Otherwise on examination, she has no focal deficits , but decreased stocking-glove sensory loss. Depressed reflexes. Diffuse weakness in upper and lowe r extremities and of course significant orthostatic related hypotension. Laboratory Studies: No new laboratory studies since yesterday. White blood cell count was 6.9, hemo globin 10.0, platelets 272, hemoglobin A1c yesterday was 4.9, prealbumin 14.8. Medications: She has Eliquis 2.5 mg twice daily, Coreg 3.125 mg twice daily, duloxetine 30 mg twice daily for neuropathic pain, folic acid 1 mg daily, gabapentin 800 mg 3 times daily. She has Megace 4 0 mg twice daily, midodrine 5 mg 3 times daily, Centrum Silver 1 tablet daily, Ensure high protein 23 7 mL twice daily, Crestor 10 mg daily. She is receiving a bolus of sodium chloride 500 cc, then 75 c c an hour after. In addition for insomnia, trazodone is increased to 100 mg at bedtime and tramadol for pain has been increased to 100 mg twice daily as needed. She also has thiamine for reducing risk of any alcohol withdrawal. Progress Made With Physical And Occupational Therapy: Today, bed mobility was done with contact guar d assistance. She did bihpg-ht-ehygc transfers with moderate assistance and was dependent with her s cooting and sliding over in a supine position and did become dizzy as noted. Orthostatics were done; supine 94/65, pulse 89, sitting for 1 to 2 minutes 84/61, pulse of 95, and after she did transfer 56 /39, heart rate of 98. She felt very dizzy throughout. The blood pressure did come back to 77/47, h eart rate of 94, and again while in bed supine, 97/69, heart rate of 95. Progress with her occupatio nal therapy, supervision for idjqvm-wq-bbr transfers, fjk-kv-uqser transfers at edge of bed, minimum to contact guard assistance required. Assessment: Ms. Gan is a 49-year-old patient with alcoholic peripheral neuropathy. She has sign ificant autonomic dysfunction with very low blood pressures on changing position from lying to sittin g to standing. She does have midodrine on board 5 mg 3 times daily. She is receiving a 500 cc bolus of normal saline and continuing 75 cc an hour to complete the liter. Her electrolytes were adjusted in terms of replacement with magnesium and potassium. She did have duloxetine and gabapentin for ma naging neuropathic pain. Tramadol was increased from 50 to 100 mg twice daily. Trazodone increased from 50 to 100 mg twice daily because of some difficulty with falling asleep. Plan: 1.In terms of her plan, she will continue with physical and occupational therapy, 3 hours a day, 5 o f 7 days. 2.Continue with comorbid condition medications as noted and has been changed above. SONJA/SILVIO Voice ID: [id number] Report ID: [id number]
[2024-03-13] MEDS: SODIUM CHLORIDE 0.9% 10ML INJ IV SCH (03:02)
[2024-03-13] MEDS: DOCUSATE NA/SENNA CONC 1 TAB PO SCH (11:59)
--- NOTE | 2024-03-13 13:26 | P.RH.PN ---
Estimated Length of Stay: 11 Expected Discharge Date: 03/19/24 Discharge Disposition Plan: Home Family Support: Yes Correction Goal: Mobility, Transfers, Self Care Vital Signs: Last Vital Signs Temp 97.2 F 03/13/24 06:25 Pulse 89 03/13/24 08:00 Resp 18 03/13/24 06:25 BP 111/75 03/13/24 08:00 Pulse Ox 97 03/13/24 06:25 Laboratory: Laboratory Last Values WBC 6.90 thou/uL (4.3-10.9) 03/11/24 05:23 RBC 3.19 M/uL (3.86-4.86) L 03/11/24 05:23 Hgb 10.0 g/dL (12.0-15.0) L 03/11/24 05:23 Hct 30.4 % (36.0-45.0) L 03/11/24 05:23 MCV 95.3 fL (80-100) 03/11/24 05:23 MCH 31.4 pg (27.0-35.0) 03/11/24 05:23 MCHC 33.0 g/dL (32.0-36.0) 03/11/24 05:23 RDW 17.6 % (12.1-15.2) H 03/11/24 05:23 Plt Count 272 thou/uL (152-406) 03/11/24 05:23 MPV 8.5 fL (7.6-11.3) 03/11/24 05:23 Neutrophils % 60.2 % (41.7-73.7) 03/11/24 05:23 Lymphocytes % 28.3 % (15.3-44.8) 03/11/24 05:23 Monocytes % 6.6 % (3.3-12.3) 03/11/24 05:23 Eosinophils % 4.0 % (0-4.4) 03/11/24 05:23 Basophils % 0.9 % (0-1.3) 03/11/24 05:23 Absolute Neutrophils 4.1 K/uL (1.8-8.0) 03/11/24 05:23 Absolute Lymphocytes 1.9 K/uL (0.7-4.9) 03/11/24 05:23 Absolute Monocytes 0.5 K/uL (0.1-1.3) 03/11/24 05:23 Absolute Eosinophils 0.3 K/uL (0-0.5) 03/11/24 05:23 Absolute Basophils 0.1 K/uL (0-0.5) 03/11/24 05:23 Sodium 139 mEq/L (136-145) 03/11/24 05:23 Potassium 3.9 mEq/L (3.5-5.1) 03/11/24 05:23 Chloride 107 mEq/L (98-107) 03/11/24 05:23 Carbon Dioxide 26 mEq/L (21-32) 03/11/24 05:23 Anion Gap 9.9 mEq/L (5.0-15.0) 03/11/24 05:23 BUN 7 mg/dL (7-18) 03/11/24 05:23 Creatinine 0.48 mg/dL (0.55-1.02) L 03/11/24 05:23 Est GFR (CKD-EPI) 116 ml/min (=/>90) 03/11/24 05:23 Glucose 104 mg/dL (74-106) 03/11/24 05:23 POC Glucose 117 mg/dL (65-120) 03/10/24 19:46 Hemoglobin A1c 4.9 % (4.2-6.3) 03/11/24 05:23 Calcium 9.2 mg/dL (8.5-10.1) 03/11/24 05:23 Magnesium 2.0 mg/dL (1.6-2.4) 03/11/24 05:23 Albumin 2.2 g/dL (3.4-5.0) L 03/11/24 05:23 Prealbumin 14.8 mg/dL (20-40) L 03/11/24 05:23 Urine Color Light-yellow (Yellow) 03/10/24 16:20 Urine Clarity Turbid (Clear) H 03/10/24 16:20 Urine pH 6.5 (5.0-7.0) 03/10/24 16:20 Ur Specific [place] 1.013 (1.005-1.030) 03/10/24 16:20 Glucose (UA)(Auto) Negative (Negative) 03/10/24 16:20 Urine Ketones Negative (Negative) 03/10/24 16:20 Urine Blood Negative (Negative) 03/10/24 16:20 Urine Nitrite Negative (Negative) 03/10/24 16:20 Urine Bilirubin Negative (Negative) 03/10/24 16:20 Urine Urobilinogen Normal (Normal) 03/10/24 16:20 Ur Leukocyte Esterase 75 Semaj/uL (Negative) H 03/10/24 16:20 Urine RBC <5 /HPF (None Seen) 03/10/24 16:20 Urine WBC <5 /HPF (<5) 03/10/24 16:20 Ur Squamous Epith Cells <5 /HPF (None Seen) 03/10/24 16:20 U Non-Squamous Epi Cells <5 /HPF (None Seen) 03/10/24 16:20 Unidentified Crystals Few /HPF (None Seen) 03/10/24 16:20 Urine Bacteria <20 /HPF (<20) 03/10/24 16:20 Urine Mucus 2+ /HPF (None Seen) 03/10/24 16:20 Urine Yeast (Budding) Trace /HPF (None Seen) H 03/10/24 16:20 Urine Culture Reflexed Not needed 03/10/24 16:20 Urine Total Protein Negative (Negative) 03/10/24 16:20 Weight: 145 lb 3.2 oz Wound Present: No Physician Update: Labs reviewed and are stable. She has mild malnutrition. Poor appetite. BIMS 15. Barriers include orthostatic hypotension and chronic peripheral neuropathy with abdominal hernia. Very high fall risk with anxiety about falling. Her blood pressured responded to IV fluids, midodrine and STACEY hose. RW 125' two days ago. Mod assist with transfers and holding herself at the edge of the bed. WC 40' x 2. Met 2/6, STG. Toileting is min assist. Will continue NS at 75 cc/hour. Summary: Patient's care plan and senior living goals have been reviewed and revised as necessary. Please see the Rehabilitation Signature page for all necessary signatures.
[2024-03-13] MEDS: carvediloL 3.125 MG TAB PO SCH (19:16)
[2024-03-13] MEDS: TRAMADOL HCL 50 MG TAB PO PRN (20:57)
[2024-03-15] MEDS: MIDODRINE HCL 5 MG TABLET PO SCH (08:19)
[2024-03-16] MEDS: DULOXETINE 20 MG CAP PO SCH (19:19)
--- NOTE | 2024-03-17 02:07 | PN ---
Date of Progress Note: 03/16/2024 Time Of Service: 1 p.m. Subjective: Ms. Gan is just back in her bed after ambulating around the unit a few times. She i s very happy with her progress. Still has significant pain in the bottom of her feet when she ambula enzo, otherwise is very happy with overall progress and would like to follow up in my clinic and Neuro logy as an outpatient. Objective: No fevers or chills. Mild myalgias, arthralgias. Some pain at the bottom of the foot fr om neuropathy as noted and amount of pain in the back. Physical Examination: Vital Signs: Blood pressure 118/79, pulse of 103, respiratory rate of 18, temperature 98.2, oxygen s aturation 97%. Still has orthostatics where lying 178/74, pulse 100; sitting 109/66, pulse 88; and s tanding 92/59, pulse 102. She was mildly symptomatic. Neurologic: Otherwise in terms of her exam, no new findings. Still has stocking-glove loss, light t ouch and temperature. Mild distal weakness. Some difficulty with her balance and gait. She ambulat es well with a walker with gait belt and therapist in tow. Laboratory Studies: No new laboratory studies. X-ray/imaging: No new x-rays or imaging. Medications: Have been reviewed. She does have Cymbalta, which is now 40 mg twice daily to help wit h neuropathic pain. Otherwise, medications are unchanged. Progress Made With Physical And Occupational Therapy: With physical therapy today, she ambulated 125 feet 5 times with contact guard assistance using a rolling walker. She was able to go up and down 5 steps with bilateral handrails twice. Supine TO sit transfers done independently, multiple sit to s tand transfers done with contact guard assistance. With occupational therapy, did make good improvem ent in ADLs. Supervision for bathing, upper body dressing, lower body dressing, and donning and doff ing footwear. Static standing balance, she did very well. Assessment: Ms. Gan is a 49-year-old patient admitted to rehabilitation unit with alcoholic dakota pheral neuropathy, who is making great progress in terms of recovery in mobilization, balance, gait. She still has significant peripheral neuropathy pain and medications have been adjusted to add an in creased dosage of duloxetine and gabapentin. She continues with DVT prophylaxis, continues with Core g for heart rate control, with Eliquis for DVT prophylaxis, Megace which she enjoys as good appetite stimulant. She has midodrine for pressure support, Ensure Enlive for malnutrition, rosuvastatin for dyslipidemia, Senokot-S for constipation. She has Desyrel for insomnia, tramadol for pain, thiamine to help reduce the risk of alcohol withdrawal. Plan: She will continue with physical and occupational therapy for 3 hours a day, 5 of 7. She will continue with all comorbid condition medications, which have been mentioned. SONJA/SILVIO Voice ID: [id number] Report ID: [id number]
[2024-03-17] MEDS: MAGNESIUM OXIDE 400 MG TAB PO SCH (19:56)
--- NOTE | 2024-03-17 21:21 | PN ---
Date of Progress Note: 03/17/2024 Time Of Service: 1 p.m. Subjective: Ms. Gan is doing therapy with the physical therapist in the room. She is very happy so far. She has been ambulating around the unit. She said her foot pain is still present, but impr arnold or lessened, especially on the left side. Otherwise, no new complaints. Objective: No fevers, chills, nausea, vomiting, myalgias, arthralgias. No rash or psychiatric compl aints. Physical Examination: Vital Signs: Blood pressure 127/78, pulse 93, respiratory rate 16, temperature 97, oxygen saturation 99%. General: Ms. Gan just ambulated around the unit. She is smiling. HEENT: She is normocephalic, atraumatic. Sclerae anicteric. Oropharynx moist. Neck: Supple. Chest: Clear. Heart: Regular. Extremities: No significant edema, cyanosis, or clubbing. Neurological: Stocking glove loss, light touch, temperature. Mild diffuse weakness, distal more leta n proximal. Otherwise, no other new findings. X-ray/imaging: No new x-rays or imaging. Medications: Medications have been reviewed and continued. Now unchanged over the last couple of da ys. Progress Made With Physical And Occupational Therapy: With physical therapy today, she ambulated 125 feet 3 times and 140 feet twice with contact guard assistance using a rolling walker. She was able to go up and down 5 steps and then 10 steps with bilateral handrails with standby assistance. Supine -to-sit transfers done independently. Multiple bws-gs-rcymc transfer also done independently. With occupational therapy, she did make significant improvements with her goals. She was able to pic k up very small stones and place them in a cup bimanually to improve her fine finger movement and gra sp, and she was doing well with that. She felt somewhat dizzy in the afternoon. Blood pressures, ho wever, were normal. Heart rate slightly elevated, and she did complain of some tingling in the hands and feet. Assessment: Ms. Gan is a 49-year-old patient, admitted to the inpatient rehabilitation unit with alcoholic peripheral neuropathy. She has decreased mobility, decreased physical functioning. She h as anxiety and depression, treated with duloxetine. Gabapentin for neuropathic pain and difficulty w ith her balance and coordination. Also, she did start Megace for poor appetite and is happy with leta t. Plan: She will continue with physical and occupational therapy 3 hours a day, 5 of 7 days. Continue with Megace for poor appetite. Continue trazodone for insomnia, tramadol for pain, thiamine for add ressing issues related to chronic alcohol use, Senokot for constipation, Crestor for dyslipidemia. S he has Ensure High Protein for malnutrition, midodrine to support her blood pressure with orthostasis related to autonomic dysfunction of alcoholic neuropathy. Magnesium oxide for muscle spasms, gabape ntin for neuropathic pain along with the duloxetine. LB/MODL Voice ID: [id number] Report ID: [id number]
[2024-03-18 06:12] LABS: Absolute Basophils 0.1 K/uL (0-0.5); Absolute Eosinophils 0.2 K/uL (0-0.5); Absolute Lymphocytes (CBC) 2.2 K/uL (0.7-4.9); Absolute Monocytes 0.5 K/uL (0.1-1.3); Absolute Neutrophil 3.5 K/uL (1.8-8.0); Basophils % 1.1 % (0-1.3); Eosinophils % 2.9 % (0-4.4); Hematocrit 29.8 % (36.0-45.0); Hemoglobin 9.9 g/dL (12.0-15.0); Lymphocytes % 34.5 % (15.3-44.8); MCH 30.7 pg (27.0-35.0); MCHC 33.1 g/dL (32.0-36.0); MCV 92.8 fL (80-100); MPV 8.3 fL (7.6-11.3); Monocytes % 7.4 % (3.3-12.3); Neutrophils % 54.1 % (41.7-73.7); Platelets 250 thou/uL (152-406); RBC Red Blood Cell Count 3.21 M/uL (3.86-4.86); Red Cell Distribution Width 17.8 % (12.1-15.2)
[2024-03-18 06:30] LABS: Albumin 2.7 g/dL (3.4-5.0); Anion Gap 7.3 mEq/L (5.0-15.0); Magnesium 2.1 mg/dL (1.6-2.4); Potassium 3.3 mEq/L (3.5-5.1); Prealbumin 16.5 mg/dL (20-40)
[2024-03-18] MEDS: LIDOCAINE 4% PATCH TOP SCH ×2 (08:00→20:34)
[2024-03-18] MEDS: POTASSIUM CL SA 10 MEQ TAB PO ONE ×2 (08:52→11:12)
--- NOTE | 2024-03-18 21:39 | PN ---
Date of Progress Note: 03/18/2024 Time Of Service: 1:20 p.m. Subjective: Ms. Gan is resting in bed. She is very happy with therapy so far. Says pain in her extremities is much better, but still present, especially in the left foot as she ambulates, but no other or new complaints. Objective: No fevers, chills, nausea, vomiting. No significant myalgias, arthralgias. Again, neuro nichol pain in the feet and hands, improving. Physical Examination: Vital Signs: Blood pressure 114/79, pulse of 94, respiratory rate 17, temperature 98.1, oxygen satur ation 97%. General: Ms. Gan is resting comfortably in bed. She has no significant distress. She has lots of smiles, and she is happy with her therapy so far. HEENT: She is again normocephalic, atraumatic. Sclerae anicteric. Oropharynx pink, moist. Neck: Supple. Neuromuscular: She does have stocking glove loss, light touch, temperature. Mild diffuse weakness, more distally than proximally. Laboratory Studies: White blood cell count 6.4, hemoglobin 9.9, platelets 250. Sodium 139; potassiu m was slightly down today to 3.3 from 3.9 one week ago, she has potassium replacement on board; chlor niya 110; carbon dioxide of 25; creatinine 0.48; glucose 96. Calcium 9.6, magnesium 2.4, albumin 2.7. Prealbumin 16.5. X-ray/imaging: No new x-rays or imaging. Medications: Her medications have been reviewed. She does have the lidocaine patch applied and has potassium replacement on board, receiving 10 mEq daily. She has also received 20 mEq x2 today and jeremy bowles recheck potassium done in the morning. Progress Made With Physical And Occupational Therapy: Today, with her physical therapy, she did supi ne-to-sit transfers independently, performed multiple evj-gv-tcgbd transfers independently, performed a simulated car transfer independently. She ambulated with a rolling walker 325 feet, 150 feet, and 125 feet twice with standby assistance. She is able to go up and down 20 steps with bilateral handr ails and did so independently. With her occupational therapy, independent with bed mobilization, loyda palmer from room to gym to shower to gym; Rollator, did so independently; shower transfer, again all inde pendently. Independent with upper and lower body dressing, donning/doffing footwear and exercise, al l independent. Assessment: Ms. Gan is a 49-year-old patient with alcoholic peripheral neuropathy. She has mild decreased mobility, decreased physical functioning, but she is making excellent progress with her ph ysical and occupational therapy, returning to her level of functioning. She has poor appetite, addre ssed well with Megace. Gabapentin for neuropathic pain is helping along with duloxetine, and ambulat ing and doing very well. Plan: 1.She will continue with physical and occupational therapy 3 hours a day, 5 of 7 days. 2.Continue with comorbid condition medications. For her constipation, Senokot. Crestor for dyslipi demia. Megace for poor appetite. Ensure Enlive for malnutrition. Midodrine for pressure support. Magnesium oxide for muscle spasms. Digoxin plus gabapentin for her alcoholic and hepatic pain. She wants to be followed up in clinic and that will be arranged within the month and this will be in [facility]. She will follow up with her primary care physician as well and continue therapy via Home Health. SONJA/SILVIO Voice ID: [id number] Report ID: [id number]
[2024-03-19 06:35] VITALS: BP 97/62; TEMP 97.4
[2024-03-19] MEDS: POTASSIUM CL SA 10 MEQ TAB PO ONE (07:17)
[2024-03-19] MEDS: POTASSIUM CL SA 10 MEQ TAB PO SCH (07:17)
[2024-03-19] MEDS ORDERED: POTASSIUM CL SA 10 MEQ TAB PO SCH (08:00)
--- NOTE | 2024-03-19 22:43 | PN ---
Date of Progress Note: 03/19/2024 Time Of Service: 1:10 p.m. Subjective: Ms. Gan is ready for her discharge today. She is very happy about all the progress she has made and at bedside also, very happy with progress. Pain in the feet and upper extre mities is managed better. Objective: No fevers, chills, nausea, vomiting, myalgias, arthralgias. Mild pain in the feet and sutherland nds, but again improving. Physical Examination: Vital Signs: Blood pressure 99/62, pulse 84, respiratory rate 18, temperature 97.4, oxygen saturatio n 96%. General: Ms. Gan is resting comfortably in bed. She is smiling. HEENT: She is normocephalic, atraumatic. Sclerae anicteric. Oropharynx pink, moist. Neck: Supple. Chest: Clear. Heart: Regular. Neuromuscular: No significant clubbing, cyanosis, or edema. Stocking glove loss, light touch, tempe rature. As noted, mild weakness to lower extremities, distally and proximally. Laboratory Studies: White blood cell count 6.4, hemoglobin 9.9, platelets 250. Sodium 139, potassiu m 4.0, chloride 110, carbon dioxide 25, BUN 6, creatinine 0.48, glucose 96. Calcium 9.6, magnesium 2 .1, albumin 2.7. Prealbumin 16.5. X-ray/imaging: No new x-rays or imaging. Medications: As noted, she has received some more potassium today because of hypokalemia and repeat was normal. She of course has had multiple medications continued throughout hospitalization, and she has her discharge medications already set. Progress Made With Physical And Occupational Therapy: Regarding her physical therapy, she was able t o perform osuxhr-fu-zyv transfers independently, multiple mop-bd-lmump transfers done independently. Ambulated with a rolling walker 325 feet, 150 feet, and 125 feet twice with standby assistance. She was able to go up and down 20 steps with bilateral handrails independently. With occupational thera py, independent with bed mobility. Ambulating from room to shower to the gym and back to the room wi th a Rollator, all independently. Upper and lower body dressing, independently. Footwear, independe nt. Again, she did very well with all therapy, including toilet hygiene, lower body dressing. Assessment And Plan: Ms. Gan is a 49-year-old patient in the rehabilitation unit with alcoholic peripheral neuropathy. She has much improved. Decreased mobility, decreased physical functioning in addition to poor appetite, addressed with Megace. Eliquis addressed her DVT risk. She did have Cor eg for heart rate control, duloxetine for neuropathic pain and depression along with gabapentin, magn esium oxide for muscle spasms, midodrine for blood pressure support due to autonomic dysfunction rela jeffy to her embolic neuropathy. She did have hypokalemia addressed with potassium replacement, rosuva statin for dyslipidemia, and thiamine to reduce the risk of alcohol withdrawal. Tramadol for pain. Desyrel was used for insomnia. She is now discharged and will follow up with Dr. [facility] i n 1 month and primary care physician as scheduled. All medications were sent off by prescription wit h the patient. LB/MODL Voice ID: [id number] Report ID: [id number]
--- NOTE | 2024-04-06 08:11 | DS ---
Date of Discharge: 03/19/2024 Discharge Condition: Good. Allergies: LISINOPRIL, MORPHINE, AND TIZANIDINE. 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 Followup: With primary care physician as scheduled. Laboratory Studies: White blood cell count 6.4, hemoglobin 9.9, platelets 250. Sodium 139, potassiu m 4.0, chloride 110, carbon dioxide 25, BUN 6, creatinine 0.48, glucose 96. Calcium 9.6, magnesium 2 .1. Albumin 2.7, prealbumin 16.5. Urinalysis on March 10, turbid clarity, 75 esterase, trace bu dding yeast. X-ray/imaging: No x-rays or imaging done. Medications: Kenalog cream apply topically daily as needed, Coreg 3.125 mg twice daily, trazodone 50 mg at bedtime, Crestor 10 mg daily, gabapentin 800 mg 3 times daily, folic acid 1 mg daily, tramadol 100 mg twice daily as needed, vitamin D daily, potassium 10 mEq twice daily, Centrum Silve r 1 tablet daily, midodrine 5 mg 3 times daily, Megace mg twice daily, magnesium oxide 400 mg twice daily, lidocaine patch apply 2 patches daily as needed, Ensure High Protein 237 mL twice da bro[place], Cymbalta 40 mg twice daily, Senokot-S 2 at bedtime. Synopsis Of Events That Led To Admission: Ms. Gan is a 49-year-old patient with multiple medical problems as noted, who has chronic alcoholism and was evaluated and diagnosed prior to coming to [facility] with Wernicke encephalopathy and acute small bowel obstruction. The surgical service was consu lted. NG was placed. She was decompressed and followed up including a small bowel follow-through, w [facility] showed water soluble contrast study reached the colon within 12 hours and the rectum within 24 h ours. There was small bowel dilatation, which was unchanged from a prior study done on February 26, 2024. She improved clinically and was stable after the NG tube placed and did not require surgery. She did tolerate a regular diet. However, hospital course was complicated by UTI, requiring Zosyn an d hydration. She was put on alcohol withdrawal prophylaxis. However, the patient does have signific ant neuropathy symptoms, potentially due to multiple factors including diabetes mellitus and alcohol use. As a result, she had difficulty with gait, balance, coordination with a tendency to fall. She was at [facility] and discharged for outpatient workup; however, the patient did again have worsening kelly ce, gait, coordination with a tendency to fall and was then felt to be a more appropriate candidate f or inpatient rehabilitation and that was done, which she was admitted to the unit for physical and oc cupational therapy. She did have incidents of orthostatic hypotension and had moderate to maximum as sistance for ordinary activities of daily living and transferring, only able to ambulate about 15 fee t due to fatigue and loss of balance. She was therefore again brought into the hospital in rehab for physical, occupational, and speech therapy along with medical management of her comorbid conditions. Hospital Course: During hospitalization, she maintained an afebrile status. White blood cell count remained normal. Hemoglobin was stable at 10 on admission; 9.9 at discharge. Her kidney function re mained normal. Blood glucose actually was in very good range, 117 the highest. Hemoglobin A1c was 4 .9, ruling out diabetes. The more likely etiology for neuropathy therefore was alcoholic neuropathy. She did have potassium slightly low on the th at 3.3, was corrected to 4.0 by the . Progress Made With Physical And Occupational Therapy: By her discharge, Ms. Gan was able to ambu late with a rolling walker 350 feet with good tolerance. She was able to go up and down 20 steps wit h bilateral handrails and met all of her long-term and short-term goals, durable equipment for home w as met, and she was discharged to continue therapy via [facility]. Regarding occupational therapy at discharge, toilet transfers independent. Lower body dressing independent. Showering, all activities of daily living done independently. Discharged home with spouse and to continue therapy via Home Health. She was evaluated by Speech and determined not to require any issues pending on spe ech therapy. Swallowing okay. Cognition was okay. Followup: Again, with primary care physician as scheduled. SONJA/SILVIO Voice ID: [id number] Report ID: [id number]
== END 2024-03-19 17:18 | disposition home or self-care (01) | DRG 74 ==
LOC: 5TH 08:50
PROVIDERS: ADMIT Psychiatry & Neurology Neurology with Special Qualifications in Child Neurology; ATTEND Psychiatry & Neurology Neurology with Special Qualifications in Child Neurology
DX: G62.1 Alcoholic polyneuropathy (principal); F10.188 Alcohol abuse with other alcohol-induced disorder; E46 Unspecified protein-calorie malnutrition; D64.9 Anemia, unspecified; E11.9 Type 2 diabetes mellitus without complications; I10 Essential (primary) hypertension; R00.0 Tachycardia, unspecified; N30.90 Cystitis, unspecified without hematuria; I95.1 Orthostatic hypotension; E78.5 Hyperlipidemia, unspecified; K59.00 Constipation, unspecified; G47.00 Insomnia, unspecified; Z68.26 Body mass index [BMI] 26.0-26.9, adult
CPT/HCPCS: 36415; 80048; 81001; 82040; 82947; 83036; 83735; 84132; 84134; 85025; 87086; 87088; 92523; 97110; 97116; 97163; 97165; 97530; 97533; 97542; A4216; J2003; J7030